=== PATIENT | female | born 1950 | race Caucasian/White ===

== ENCOUNTER → 2016-09-13 | Outpatient (CLI) | payer MEDICARE, OTHER ==
[~2016-09-13] MED LIST: AMLO5TAB2; ASPI-266 PO; LEVOTHYROXINE; NITR-65 PO; PHEN200T27 PO; SIMV10TA3
--- NOTE | 2016-09-14 19:11 | Diagnostic Imaging Report ---
Bilateral screening mammogram The current study was also evaluated with a Computer Aided Detection (CAD) system. Indication: Screening. No current complaints stated on the questionnaire. COMPARISON: 08/16/15. FINDINGS: The breasts are composed of scattered fibroglandular densities. There is a punctate calcification in the right breast. Allowing for technique and positional differences, no suspicious change is seen. IMPRESSION: No significant change. ACR BI-RADS Category 2: Benign findings. Result letter will be mailed to the patient. Note: At least 10% of breast cancer is not imaged by mammography. Dictated on workstation # [id number]
== END ==
LOC: RAD 13:58
PROVIDERS: ATTEND Family Medicine
DX: Z12.31 Encounter for screening mammogram for malignant neoplasm of breast (principal)
CPT/HCPCS: 77067

== ENCOUNTER 2017-05-05 10:04 | Emergency (ER) | payer MEDICARE, OTHER ==
[~2017-05-05] VITALS: Ht 162.6 cm; Wt 76.2 kg
[2017-05-05 11:38] LABS: BILIRUBIN,URINE NEGATIVE (NEGATIVE); CLARITY,URINE CLEAR; COLOR,URINE YELLOW; GLUCOSE, URINE (UA) NEGATIVE (NEGATIVE); KETONES,URINE NEGATIVE (NEGATIVE); LEUKOCYTE ESTERASE ,URINE 1+ (NEGATIVE); NITRITE,URINE NEGATIVE (NEGATIVE); PH,URINE 7 (5-9); PROTEIN,URINE NEGATIVE (NEGATIVE); UROBILINOGEN,URINE NORMAL (NORMAL)
--- NOTE | 2017-05-05 11:40 | ED Psychosocial ---
General Chief Complaint: Psych/Social Disorder Stated Complaint: ANXIETY Nursing Triage Note: PT HERE WITH C/O GENERAL ANXIETY. PT REPROTS THAT SHE HAS BEEN CARING FOR HER ILL BROTHER AND HER GROWN SON RECENTLY MOVED IN WITH HER AND HER AND FEELS LIKE SHE IS BEING "CONSUMED BY HER ANXIETY" AND THINKS THAT SHE NEEDS TO BE HOSPITALIZED. PT HAS A HISTORY OF ANXIETY AND TAKES ALPRAZOLAM BUT REPORTS IT IS NO LONGER WORKING. DENIES THOUGHTS OF SELF HARM. PT IS TEARFUL ON TRIAGE. Source: patient, spouse Exam Limitations: no limitations History of Present Illness Date Seen by Provider: May 05, 2017 Time Seen by Provider: 11:40 Allergies and Home Medications Allergies Coded Allergies: No Known Drug Allergies (Unverified , 11/08/13) Home Medications Aspirin 81 Mg Tablet.dr, 81 MG PO DAILY, (Reported) Nitrofurantoin/Nitrofuran Mac 100 Mg Capsule, 1 EACH PO BID FOR INFECTION Prescribed by: PATRICK GONZALEZ on 11/08/13 1008 Phenazopyridine Hcl 200 Mg Tablet, 1 EACH PO TID PRN for BLADDER DISCOMFORT Prescribed by: PATRICK GONZALEZ on 11/08/13 1008 Past Oadeccr-Aoxffi-Dixoiq Hx Patient Social History Recreational Drug Use: No Recent Foreign Travel: No Contact w/Someone Who Travel: No Recent Infectious Disease Expo: No Recent Hopitalizations: No Physical Abuse: No Sexual Abuse: No Mistreated: No Fear: No Immunizations Up To Date Date of Pneumonia Vaccine: Feb 08, 2013 Seasonal Allergies Seasonal Allergies: No Surgeries History of Surgeries: Yes (D AND C) Surgeries: Hysterectomy, Tubal Ligation Respiratory History of Respiratory Disorde: No Cardiovascular History of Cardiac Disorders: Yes Cardiac Disorders: High Cholesterol, Hypertension Neurological History of Neurological Disord: No Genitourinary History of Genitourinary Disor: Yes (BLADDER STRETCHED) Genitourinary Disorders: UTI-Chronic Gastrointestinal History of Gastrointestinal Di: No Musculoskeletal History of Musculoskeletal Dis: Yes Musculoskeletal Disorders: Arthritis Endocrine History of Endocrine Disorders: Yes Endocrine Disorders: Hypothyroidsim HEENT History of HEENT Disorders: No Cancer History of Cancer: No Psychosocial History of Psychiatric Problem: Yes Behavioral Health Disorders: Anxiety Suicide Risk Score: 0 Integumentary History of Skin or Integumenta: No Physical Exam Vital Signs Vital Signs - First Documented 05/05/17 10:42 Temp 96.3 Pulse 89 Resp 18 B/P (MAP) 199/93 (128) Pulse Ox 96 O2 Delivery Room Air Capillary Refill : Less Than 3 Seconds Progress/Results/Core Measures Results/Orders Lab Results Laboratory Tests Test 05/05/17 11:02 05/05/17 11:50 Range/Units Urine Color YELLOW Urine Clarity CLEAR Urine pH 7 5-9 Urine Specific [place] 1.010 L 1.016-1.022 Urine Protein NEGATIVE NEGATIVE Urine Glucose (UA) NEGATIVE NEGATIVE Urine Ketones NEGATIVE NEGATIVE Urine Nitrite NEGATIVE NEGATIVE Urine Bilirubin NEGATIVE NEGATIVE Urine Urobilinogen NORMAL NORMAL MG/DL Urine Leukocyte Esterase 1+ H NEGATIVE Urine RBC (Auto) 1+ H NEGATIVE Urine RBC NONE /HPF Urine WBC 0-2 /HPF Urine Squamous Epithelial Cells 2-5 /HPF Urine Crystals NONE /LPF Urine Bacteria NEGATIVE /HPF Urine Casts NONE /LPF Urine Mucus NEGATIVE /LPF Urine Culture Indicated NO Urine Opiates Screen NEGATIVE NEGATIVE Urine Oxycodone Screen NEGATIVE NEGATIVE Urine Methadone Screen NEGATIVE NEGATIVE Urine Propoxyphene Screen NEGATIVE NEGATIVE Urine Barbiturates Screen NEGATIVE NEGATIVE Ur Tricyclic Antidepressants Screen NEGATIVE NEGATIVE Urine Phencyclidine Screen NEGATIVE NEGATIVE Urine Amphetamines Screen NEGATIVE NEGATIVE Urine Methamphetamines Screen NEGATIVE NEGATIVE Urine Benzodiazepines Screen NEGATIVE NEGATIVE Urine Cocaine Screen NEGATIVE NEGATIVE Urine Cannabinoids Screen NEGATIVE NEGATIVE White Blood Count 7.8 4.3-11.0 10^3/uL Red Blood Count 5.31 4.35-5.85 10^6/uL Hemoglobin 15.9 11.5-16.0 G/DL Hematocrit 48 35-52 % Mean Corpuscular Volume 90 80-99 FL Mean Corpuscular Hemoglobin 30 25-34 PG Mean Corpuscular Hemoglobin Concent 33 32-36 G/DL Red Cell Distribution Width 13.3 10.0-14.5 % Platelet Count 283 130-400 10^3/uL Mean Platelet Volume 9.5 7.4-10.4 FL Neutrophils (%) (Auto) 63 42-75 % Lymphocytes (%) (Auto) 23 12-44 % Monocytes (%) (Auto) 13 H 0-12 % Eosinophils (%) (Auto) 0 0-10 % Basophils (%) (Auto) 0 0-10 % Neutrophils # (Auto) 4.9 1.8-7.8 X 10^3 Lymphocytes # (Auto) 1.8 1.0-4.0 X 10^3 Monocytes # (Auto) 1.0 0.0-1.0 X 10^3 Eosinophils # (Auto) 0.0 0.0-0.3 10^3/uL Basophils # (Auto) 0.0 0.0-0.1 10^3/uL Sodium Level 141 135-145 MMOL/L Potassium Level 3.7 3.6-5.0 MMOL/L Chloride Level 106 98-107 MMOL/L Carbon Dioxide Level 27 21-32 MMOL/L Anion Gap 8 5-14 MMOL/L Blood Urea Nitrogen 11 7-18 MG/DL Creatinine 0.72 0.60-1.30 MG/DL Estimat Glomerular Filtration Rate > 60 BUN/Creatinine Ratio 15 Glucose Level 102 70-105 MG/DL Calcium Level 9.4 8.5-10.1 MG/DL Total Bilirubin 0.9 0.1-1.0 MG/DL Aspartate Amino Transf (AST/SGOT) 16 5-34 U/L Alanine Aminotransferase (ALT/SGPT) 19 0-55 U/L Alkaline Phosphatase 83 40-136 U/L Total Protein 6.8 6.4-8.2 GM/DL Albumin 4.1 3.2-4.5 GM/DL TSH [place] Testing 0.69 0.35-4.94 UIU/ML Salicylates Level < 5.0 L 5.0-20.0 MG/DL Acetaminophen Level < 10 L 10-30 UG/ML Serum Alcohol < 10 <10 MG/DL My Orders Orders - NAHID LUA Ua Culture If Indicated (05/05/17 11:33) Cbc With Automated Diff (05/05/17 11:33) Comprehensive Metabolic Panel (05/05/17 11:33) Alcohol (05/05/17 11:33) Drug Screen Stat (Urine) (05/05/17 11:33) Acetaminophen (05/05/17 11:33) Salicylate (05/05/17 11:33) Ekg Tracing (05/05/17 11:33) Thyroid Analyzer (05/05/17 11:33) Alprazolam Tablet (Xanax Tablet) (05/05/17 13:30) General/Regular (05/06/17 Breakfast) General/Regular (05/05/17 Dinner) Medications Given in ED Current Medications Medications Dose Ordered Sig/Juan Alberto Route Start Time Stop Time Status Last Admin Dose Admin Alprazolam 0.25 mg ONCE ONCE PO 05/05/17 13:30 05/05/17 13:31 DC 05/05/17 13:32 0.25 MG Vital Signs/I&O Vital Sign - Last 12Hours 05/05/17 05/05/17 10:42 11:53 Temp 96.3 Pulse 89 Resp 18 B/P (MAP) 199/93 (128) 114/71 (85) Pulse Ox 96 O2 Delivery Room Air Blood Pressure Mean: 128 Departure Impression Impression: Primary Impression: Anxiety Additional Impression: Stress Disposition: 01 HOME, SELF-CARE Condition: Improved Departure-Patient Inst. Decision time for Depature: 15:43 Referrals: KRYSTA CASTORENA DO (PCP/Family) Primary Care Physician Patient Instructions: Anxiety, Adult (DC), Depression, Adult (DC), Stress Add. Discharge Instructions: All discharge instructions reviewed with patient and/or family. Voiced understanding. Medications as instructed. Continue usual home medications. Contact the Crisis line if needed at [phone] or . Follow-up with Dr. Dr. Castorena tomorrow at 2 p.m. in his office for recheck. Return to the emergency department for worsened symptoms, thoughts of harming yourself, thoughts of harming others, or any other concerns. Scripts Hydroxyzine Pamoate (Vistaril) 25 Mg Capsule 25 MG PO Q4H Y for ANXIETY, #20 CAP 0 Refills Prov: NAHID LUA 05/05/17 NAHID LUA May 05, 2017 11:40
[2017-05-05 11:48] LABS: BACTERIA,URINE NEGATIVE /HPF; WBC,URINE 0-2 /HPF
[2017-05-05 11:50] LABS: AMPHETAMINE SCREEN, URINE NEGATIVE (NEGATIVE); BARBITURATE SCREEN URINE NEGATIVE (NEGATIVE); BENZODIAZEPINES SCREEN URINE NEGATIVE (NEGATIVE); CANNABINOID SCREEN, URINE NEGATIVE (NEGATIVE); COCAINE SCREEN URINE NEGATIVE (NEGATIVE); METHADONE STAT NEGATIVE (NEGATIVE); METHAMPHETAMINE SCREEN URINE S NEGATIVE (NEGATIVE); OPIATE SCREEN URINE NEGATIVE (NEGATIVE); OXYCODONE STAT NEGATIVE (NEGATIVE); PROPOXYPHENE STAT NEGATIVE (NEGATIVE); TRICYCLIC ANTIDEPRESSANTS SCRE NEGATIVE (NEGATIVE)
[2017-05-05 11:53] VITALS: BP 114/71
[2017-05-05 11:55] LABS: BASOPHILS % (AUTO) 0 % (0-10); EOSINOPHILS % (AUTO) 0 % (0-10); HEMATOCRIT 48 % (35-52); HEMOGLOBIN 15.9 G/DL (11.5-16.0); LYMPHOCYTES # (AUTO) 1.8 X 10^3 (1.0-4.0); LYMPHOCYTES % (AUTO) 23 % (12-44); MEAN CORPUSCULAR HEMOGLOBIN 30 PG (25-34); MEAN CORPUSCULAR HGB CONC 33 G/DL (32-36); MEAN CORPUSCULAR VOLUME 90 FL (80-99); MEAN PLATELET VOLUME 9.5 FL (7.4-10.4); MONOCYTES % (AUTO) 13 % (0-12); NEUTROPHILS # (AUTO) 4.9 X 10^3 (1.8-7.8); NEUTROPHILS % (AUTO) 63 % (42-75); PLATELET COUNT 283 10^3/uL (130-400); RED BLOOD COUNT 5.31 10^6/uL (4.35-5.85); RED CELL DISTRIBUTION WIDTH 13.3 % (10.0-14.5); WHITE BLOOD COUNT 7.8 10^3/uL (4.3-11.0)
[2017-05-05 12:17] LABS: ALANINE AMINOTRANSFERASE 19 U/L (0-55); ALBUMIN 4.1 GM/DL (3.2-4.5); ALKALINE PHOSPHATASE 83 U/L (40-136); BILIRUBIN,TOTAL 0.9 MG/DL (0.1-1.0); BUN/CREATININE RATIO 15; CALCIUM 9.4 MG/DL (8.5-10.1); CARBON DIOXIDE 27 MMOL/L (21-32); CHLORIDE 106 MMOL/L (98-107); CREATININE SERUM 0.72 MG/DL (0.60-1.30); GFR ESTIMATED > 60; GLUCOSE 102 MG/DL (70-105); POTASSIUM 3.7 MMOL/L (3.6-5.0); SALICYLATE < 5.0 MG/DL (5.0-20.0); SODIUM 141 MMOL/L (135-145); TOTAL PROTEIN 6.8 GM/DL (6.4-8.2)
[2017-05-05 12:18] LABS: ACETAMINOPHEN < 10 UG/ML (10-30)
[2017-05-05] MEDS ORDERED: ALPRAZolam 0.25 MG (XANAX) TAB PO ONE (13:30)
[2017-05-05] MEDS ORDERED: HYDR25CA PO (17:10)
[2017-05-05 17:16] VITALS: BP 131/71
== END 2017-05-05 17:15 | disposition home or self-care (01) ==
LOC: EDUNIT# 10:04 → ER 10:06
DX: F41.9 Anxiety disorder, unspecified (principal); F43.9 Reaction to severe stress, unspecified; E03.9 Hypothyroidism, unspecified; E78.00 Pure hypercholesterolemia, unspecified; I10 Essential (primary) hypertension; Z98.51 Tubal ligation status; Z90.710 Acquired absence of both cervix and uterus; Z79.82 Long term (current) use of aspirin
CPT/HCPCS: 36415; 80053; 80306; 80320; 80329; 81000; 84443; 85025; 93005

== ENCOUNTER → 2017-08-16 | Outpatient (CLI) | payer MEDICARE, OTHER ==
[~2017-08-16] MED LIST changes: +HYDR25CA PO
--- NOTE | 2017-08-22 15:50 | RADIOLOGY REPORT ---
NAME: STEVIE FENTON [facility] REC#: [id number] PT STATUS: REG CLI : 1950 PHYSICIAN: BENJAMIN HELMS ADMIT DATE: 08/16/17/RAD Signed Date of Exam:08/16/17 CT HEAD WO PROCEDURE: CT head without contrast. TECHNIQUE: Multiple contiguous axial images were obtained through the brain without the use of intravenous contrast. INDICATION: Anxiety, depression. There are no prior studies available for comparison. There is no mass, shift of midline or hemorrhage to suggest an acute intracranial abnormality. The normal tentorial blush is noted. The ventricles are not abnormally dilated. There is cortical atrophy present. The degree of atrophy is consistent with the patient's age. The bone windows show no sign of a fracture or of a destructive lesion. The orbits are symmetrical and within normal limits. There is a 1 cm retention cyst in the floor of the left maxillary antrum and there may be a 5 mm retention cyst in the right maxillary antrum. The maxillary sinuses were not visualized in there entirety. There is mild mucosal thickening of the right sphenoid sinus. The sinuses are otherwise clear. IMPRESSION: 1. There is no for an acute intracranial abnormality and there is no sign of a mass lesion. 2. If clinical concern regarding an underlying abnormality persists and further imaging is desired, then MRI would be recommended. Dictated by: Dictated on workstation # [id number] Dict: 08/16/17 0923 Trans: 08/16/17 1418 [facility] [id number] Interpreted by: SHAMAR ARCHIBALD MD Electronically signed by: SHAMAR ARCHIBALD MD 08/16/17 1418 MTDD
== END ==
LOC: RAD 09:03
PROVIDERS: ATTEND Nurse Practitioner Psychiatric/Mental Health
DX: F41.8 Other specified anxiety disorders (principal); R41.89 Other symptoms and signs involving cognitive functions and awareness
CPT/HCPCS: 70450

== ENCOUNTER 2017-09-02 10:11 | Outpatient (RCR) | payer MEDICARE, OTHER | END 2017-12-01 | disposition home or self-care (01) | LOC: LAB 10:11 | PROVIDERS: ATTEND Family Medicine | DX: R19.7 Diarrhea, unspecified (principal) | CPT/HCPCS: 87045; 87046; 87324; 87328; 87449 ==

== ENCOUNTER 2020-10-07 05:36 | Outpatient (CLI) | payer MEDICARE, OTHER ==
[~2020-10-07] VITALS: Ht 162.6 cm; Wt 70.5 kg
[2020-10-07] MEDS ORDERED: MIRT-68 PO (11:29)
[2020-10-07] MEDS ORDERED: AMLO-250 PO (11:29)
[2020-10-07] MEDS ORDERED: ASPI-999 PO (11:29)
[2020-10-07] MEDS ORDERED: SIMV10TA26 PO (11:29)
[2020-10-07] MEDS ORDERED: OMEG100032 PO (11:29)
[2020-10-07] MEDS ORDERED: LEVO88CA4 PO (11:29)
== END 2020-10-07 11:37 | disposition home or self-care (01) ==
LOC: PREOP 05:36
PROVIDERS: ATTEND Specialist
DX: Z01.818 Encounter for other preprocedural examination (principal)

== ENCOUNTER 2020-10-14 06:27 | Day surgery (SDC) | payer MEDICARE, OTHER ==
[~2020-10-14] VITALS: Ht 162.6 cm; Wt 70.5 kg
[~2020-10-14 06:27] MED LIST changes: +AMLO-250 PO; +ASPI-999 PO; +LEVO88CA4 PO; +MIRT-68 PO; +OMEG100032 PO; +SIMV10TA26 PO
[2020-10-14] MEDS ORDERED: TIMOLOL MALEATE 0.5% 5 ML (TIMOPTIC) BTL OU PRN (06:45)
[2020-10-14] MEDS ORDERED: LIDOCAINE PF 1% 2 ML VIAL IR PRN (06:45)
[2020-10-14] MEDS ORDERED: POVIDONE (BETADINE) OPHTH SOLN 5% 30 ML OP ONE (06:45)
[2020-10-14] MEDS ORDERED: MOXIFLOXACIN OPHTH SOLN 5 MG/ML 0.3 ML SYRINGE OP ONE (06:45)
[2020-10-14] MEDS: TETRACAINE 0.5% OPHTH SOLN 4 ML BTL (SINGLE DOSE ONLY) OU PRN ×4 (06:55→07:13)
[2020-10-14 06:58] VITALS: BP 144/96
[2020-10-14] MEDS: TROPICAMIDE 1% OPH SOLN (MYDRIACYL) 15 ML BTL OP SCH ×3 (07:03→07:13)
[2020-10-14] MEDS: PHENYLEPHRINE 10% OPHTH (NEO-SYN) 5 ML BTL OU SCH ×3 (07:03→07:13)
--- NOTE | 2020-10-14 07:51 | Ophthalmologist Pre-Op Note ---
Pre-Operative Progress Note H&P Reviewed The H&P was reviewed, patient examined and no changes noted. Date H&P Reviewed: Oct 14, 2020 Time H&P Reviewed: 07:51 Pre-Op Dx Cataract, Right Eye OLGA MINOR MD Oct 14, 2020 07:51
[2020-10-14] MEDS ORDERED: MIDAZOLAM 2 MG/2 ML (VERSED) VIAL ONE (07:54)
[2020-10-14] MEDS ORDERED: acetaZOLAMIDE ER 500 MG CAP (DIAMOX SEQUELS) PO ONE (08:00)
--- NOTE | 2020-10-14 08:13 | Ophthalmology Operative Report ---
Cataract removal/placement IOL PREOPERATIVE DIAGNOSIS: Cataract Right Eye POSTOPERATIVE DIAGNOSIS: Cataract Right Eye PROCEDURE: Cataract removal and placement of posterior chamber implant, right eye SURGEON: Jian Minor ANESTHESIA: Topical with sedation COMPLICATIONS: None ESTIMATED BLOOD LOSS: Minimal DESCRIPTION OF PROCEDURE: After proper informed consent was obtained, the patient, a 70 female, was taken to the Operating Room and the right eye was anesthetized with tetracaine. The right eye was then prepped and draped in the usual manner. A wire lid speculum was placed. A paracentesis was made at the left hand position. Preservative free lidocaine was injected into the anterior chamber followed by viscoelastic. A clear corneal incision was made in the temporal position. A capsulorrhexis was preformed and the central nuclear and cortical material were removed. The posterior capsule was polished and Jesus 21.0 AU00T0 IOL was placed into the capsular bag. The residual viscoelastic was aspirated and balanced saline solution was injected into the anterior chamber. Moxifloxacin was injected into the anterior chamber. The wound was checked and found to be water tight. The patient tolerated the procedure well without complications. JIAN MINOR MD Oct 14, 2020 08:13
[2020-10-14 08:25] VITALS: BP 123/83
--- NOTE | 2020-10-14 12:45 | Anesthesia-General Post-Op ---
MAC Patient Condition Mental Status/LOC: Same as Preop Cardiovascular: Satisfactory Nausea/Vomiting: Absent Respiratory: Satisfactory Pain: Controlled Complications: Absent Post Op Complications Complications None Follow Up Care/Instructions Patient Instructions None needed. Anesthesiology Discharge Order Discharge Order Patient is doing well, no complaints, stable vital signs, no apparent adverse anesthesia problems. No complications reported per nursing. RAFAELA RUSSO CRNA Oct 14, 2020 12:45
== END 2020-10-14 08:25 | disposition home or self-care (01) ==
LOC: SDC 06:27
PROVIDERS: ATTEND Specialist
DX: H25.11 Age-related nuclear cataract, right eye (principal); F41.9 Anxiety disorder, unspecified; F32.9 Major depressive disorder, single episode, unspecified; E03.9 Hypothyroidism, unspecified; E78.00 Pure hypercholesterolemia, unspecified; Z79.899 Other long term (current) drug therapy
CPT/HCPCS: 66984; V2632

== ENCOUNTER 2020-10-21 05:43 | Outpatient (CLI) | payer MEDICARE, OTHER ==
[~2020-10-21] VITALS: Ht 162.6 cm; Wt 70.5 kg
== END 2020-10-21 11:25 | disposition home or self-care (01) ==
LOC: PREOP 05:43
PROVIDERS: ATTEND Specialist
DX: Z01.818 Encounter for other preprocedural examination (principal)

== ENCOUNTER 2020-10-28 06:56 | Day surgery (SDC) | payer MEDICARE, OTHER ==
[~2020-10-28] VITALS: Ht 162 cm; Wt 70.5 kg
[2020-10-28] MEDS ORDERED: MOXIFLOXACIN OPHTH SOLN 5 MG/ML 0.3 ML SYRINGE OP ONE (07:00)
[2020-10-28] MEDS ORDERED: acetaZOLAMIDE ER 500 MG CAP (DIAMOX SEQUELS) PO ONE (07:00)
[2020-10-28] MEDS ORDERED: POVIDONE (BETADINE) OPHTH SOLN 5% 30 ML OP ONE (07:00)
[2020-10-28] MEDS ORDERED: LIDOCAINE PF 1% 2 ML VIAL IR PRN (07:00)
[2020-10-28] MEDS ORDERED: TIMOLOL MALEATE 0.5% 5 ML (TIMOPTIC) BTL OU PRN (07:00)
[2020-10-28] MEDS ORDERED: MIDAZOLAM 2 MG/2 ML (VERSED) VIAL ONE (07:05)
[2020-10-28] MEDS: TETRACAINE 0.5% OPHTH SOLN 4 ML BTL (SINGLE DOSE ONLY) OU PRN ×4 (07:11→07:29)
[2020-10-28 07:13] VITALS: BP 135/87
[2020-10-28] MEDS: PHENYLEPHRINE 10% OPHTH (NEO-SYN) 5 ML BTL OU SCH ×3 (07:18→07:29)
[2020-10-28] MEDS: TROPICAMIDE 1% OPH SOLN (MYDRIACYL) 15 ML BTL OP SCH ×3 (07:18→07:29)
--- NOTE | 2020-10-28 08:10 | Ophthalmologist Pre-Op Note ---
Pre-Operative Progress Note H&P Reviewed The H&P was reviewed, patient examined and no changes noted. Date H&P Reviewed: Oct 28, 2020 Time H&P Reviewed: 08:10 Pre-Op Dx Cataract, Left Eye OLGA MINOR MD Oct 28, 2020 08:10
--- NOTE | 2020-10-28 08:31 | Ophthalmology Operative Report ---
Cataract removal/placement IOL PREOPERATIVE DIAGNOSIS: Cataract Left Eye POSTOPERATIVE DIAGNOSIS: Cataract Left Eye PROCEDURE: Cataract removal and placement of posterior chamber implant, left eye SURGEON: Jian Minor ANESTHESIA: Topical with sedation COMPLICATIONS: None ESTIMATED BLOOD LOSS: Minimal DESCRIPTION OF PROCEDURE: After proper informed consent was obtained, the patient, a 70 female, was taken to the Operating Room and the left eye was anesthetized with tetracaine. The left eye was then prepped and draped in the usual manner. A wire lid speculum was placed. A paracentesis was made at the left hand position. Preservative free lidocaine was injected into the anterior chamber followed by viscoelastic. A clear corneal incision was made in the temporal position. A capsulorrhexis was preformed and the central nuclear and cortical material were removed. The posterior capsule was polished and an Jesus 20.0 AU00T0 was placed into the capsular bag. The residual viscoelastic was aspirated and balanced saline solution was injected into the anterior chamber. Moxifloxacin was injected into the anterior chamber. The wound was checked and found to be water tight. The patient tolerated the procedure well without complications. JIAN MINOR MD Oct 28, 2020 08:31
[2020-10-28 08:44] VITALS: BP 135/85
--- NOTE | 2020-10-28 10:53 | Anesthesia-General Post-Op ---
MAC Patient Condition Mental Status/LOC: Same as Preop Cardiovascular: Satisfactory Nausea/Vomiting: Absent Respiratory: Satisfactory Pain: Controlled Complications: Absent Post Op Complications Complications None Follow Up Care/Instructions Patient Instructions None needed. Anesthesiology Discharge Order Discharge Order Patient is doing well, no complaints, stable vital signs, no apparent adverse anesthesia problems. No complications reported per nursing. OTIS FERGUSON CRNA Oct 28, 2020 10:53
== END 2020-10-28 08:50 ==
LOC: SDC 06:56
PROVIDERS: ATTEND Specialist
DX: H25.12 Age-related nuclear cataract, left eye (principal); I10 Essential (primary) hypertension; F41.9 Anxiety disorder, unspecified; F32.9 Major depressive disorder, single episode, unspecified; E03.9 Hypothyroidism, unspecified; E78.00 Pure hypercholesterolemia, unspecified; Z79.899 Other long term (current) drug therapy
CPT/HCPCS: 66984; V2632

== ENCOUNTER → 2021-07-18 | Outpatient (CLI) | payer MEDICARE, OTHER ==
--- NOTE | 2021-07-18 20:21 | Diagnostic Imaging Report ---
Digital mammogram bilateral screening This study was compared to the prior exam of 09/13/2016. At this time, there are no current complaints. The current study was also evaluated with a Computer Aided Detection (CAD) system. FINDINGS: There are scattered fibroglandular densities in both breasts which could obscure a lesion. Overall, there does not appear to have been any significant change when compared to the prior exam. No primary or secondary sign of malignancy is noted. IMPRESSION: 1. There is no radiographic evidence for malignancy. 2. The patient should have her annual bilateral screening mammogram on schedule in July of 2022. ACR category 1 ACR BI-RADS Category 1: Negative. Result letter will be mailed to the patient. Note: At least 10% of breast cancer is not imaged by mammography. Dictated by: Dictated on workstation # [id number]
== END ==
LOC: RAD 11:31
PROVIDERS: ATTEND Family Medicine
DX: Z12.31 Encounter for screening mammogram for malignant neoplasm of breast (principal)
CPT/HCPCS: 77063; 77067

== ENCOUNTER → 2021-12-27 | Outpatient (CLI) | payer MEDICARE, OTHER ==
--- NOTE | 2021-12-27 14:28 | Diagnostic Imaging Report ---
PROCEDURE: CT head without contrast. TECHNIQUE: Multiple contiguous axial images were obtained through the brain without the use of intravenous contrast. Auto Exposure Controls were utilized during the CT exam to meet ALARA standards for radiation dose reduction. INDICATION: Injured in fall presents with headache Comparisons: 08/16/2017 FINDINGS: The midline structures are not displaced. There are senescent changes the brain with involutional changes and generalized atrophy. There is some background chronic areas of microvascular ischemic change. Carrasco-white differentiation maintained. There is no sulcal effacement. There are no abnormal extra axial fluid collections or hemorrhage. Basilar cisterns appear normal. There is calcific atherosclerosis within the carotid siphons and visualized vertebral arteries. There is a mucous retention cyst at the floor of the left maxillary sinus. Orbits and mastoid air cells are grossly unremarkable. IMPRESSION: Senescent brain with and involutional changes and generalized atrophy with background chronic areas of microvascular ischemic change. There is prominent calcification of the carotid siphons and visualized vertebral arteries. Overall no acute findings identified by nonenhanced CT criteria. Chronic appearing mucosal changes versus mucous retention cyst in the floor of the left maxillary sinus. Additional nonemergent findings as described. Dictated by: Dictated on workstation # [id number]
== END ==
LOC: RAD 14:00
PROVIDERS: ATTEND Family Medicine
DX: G31.9 Degenerative disease of nervous system, unspecified (principal); I67.82 Cerebral ischemia
CPT/HCPCS: 70450

== ENCOUNTER → 2022-01-17 | Outpatient (CLI) | payer MEDICARE, OTHER ==
--- NOTE | 2022-01-17 14:22 | Diagnostic Imaging Report ---
PROCEDURE: US carotid duplex, bilateral. TECHNIQUE: Multiple real-time grayscale images were obtained over the carotid arteries in various projections, bilaterally. Additional spectral analysis and color Doppler duplex images were also obtained. INDICATION: Dizziness. COMPARISON: None available. FINDINGS: Minimal plaque is noted within bilateral carotid arterial systems. Peak systolic velocities of the bilateral carotid arterial systems are within normal limits. Additionally, the bilateral internal carotid artery to common carotid artery ratios are within normal limits. Antegrade flow within the bilateral vertebral arteries. IMPRESSION: No evidence of hemodynamically significant stenosis. Antegrade flow within the bilateral vertebral arteries. Parameters based on the consensus panel Carrasco-Scale and Doppler ultrasound criteria published January 2003, Radiology, Volume 229. DOPPLER (peak systolic velocity M/S Right Left CCA 1.15 1.22 ICA Proximal .65 .79 ICA Mid .71 .95 ICA Distal 1.10 .61 RATIO .96 .78 ECA 1.1 .85 VERT .69 .30 Dictated by: Dictated on workstation # [id number]
== END ==
LOC: RAD 09:00
PROVIDERS: ATTEND Family Medicine
DX: R42 Dizziness and giddiness (principal); R51.9 Headache, unspecified
CPT/HCPCS: 93880

== ENCOUNTER → 2022-02-07 | Outpatient (CLI) | payer MEDICARE, OTHER ==
[2022-02-07 10:21] LABS: ABSOLUTE RETIC # 55 10e9/uL (24-90); BASOPHILS % (AUTO) 1 % (0-10); EOSINOPHILS # (AUTO) 0.1 10^3/uL (0.0-0.3); EOSINOPHILS % (AUTO) 2 % (0-10); HEMATOCRIT 29 % (35-52); HEMOGLOBIN 8.6 g/dL (11.5-16.0); LYMPHOCYTES # (AUTO) 1.4 10^3/uL (1.0-4.0); LYMPHOCYTES % (AUTO) 30 % (12-44); MEAN CORPUSCULAR HEMOGLOBIN 22 pg (25-34); MEAN CORPUSCULAR HGB CONC 30 g/dL (32-36); MEAN CORPUSCULAR VOLUME 73 fL (80-99); MEAN PLATELET VOLUME 8.8 fL (9.0-12.2); MONOCYTES # (AUTO) 0.6 10^3/uL (0.0-1.0); MONOCYTES % (AUTO) 13 % (0-12); NEUTROPHILS # (AUTO) 2.6 10^3/uL (1.8-7.8); NEUTROPHILS % (AUTO) 55 % (42-75); PLATELET COUNT 429 10^3/uL (130-400); RETICULOCYTE % 1.39 % (0.50-2.40); WHITE BLOOD COUNT 4.7 10^3/uL (4.3-11.0)
[2022-02-07 10:50] LABS: EOSINOPHILS % (MANUAL) 1 %; LYMPHOCYTES % (MANUAL) 30 %; MONOCYTES % (MANUAL) 6 %; NEUTROPHILS % (MANUAL) 63 %
[2022-02-07 10:51] LABS: HYPOCHROMASIA MODERATE; MICROCYTOSIS MODERATE; TARGET CELLS SLIGHT
== END ==
LOC: LAB 09:50
PROVIDERS: ATTEND Family Medicine
DX: D64.9 Anemia, unspecified (principal)
CPT/HCPCS: 36415; 82274; 82728; 85007; 85027; 85045; 85055

== ENCOUNTER 2022-03-06 09:26 | Outpatient (CLI) | payer MEDICARE, OTHER ==
[~2022-03-06] VITALS: Ht 162.6 cm; Wt 69.8 kg
[2022-03-07] MEDS ORDERED: LOSA50TA63 PO (11:10)
[2022-03-07] MEDS ORDERED: PANT40TA52 PO (11:10)
[2022-03-07] MEDS ORDERED: LEVO75CA5 PO (11:10)
== END 2022-03-07 11:13 ==
LOC: PREOP 09:26
PROVIDERS: ATTEND Surgery
DX: Z01.818 Encounter for other preprocedural examination (principal); D50.9 Iron deficiency anemia, unspecified

== ENCOUNTER 2022-03-13 09:51 | Day surgery (SDC) | payer MEDICARE, OTHER ==
[~2022-03-13] VITALS: Ht 162.6 cm; Wt 69.8 kg
[~2022-03-13 09:51] MED LIST changes: +LEVO75CA5 PO; +LOSA50TA63 PO; +PANT40TA52 PO
[2022-03-13] MEDS ORDERED: LACTATED RINGERS 1,000 ML IV STA (09:53)
[2022-03-13] MEDS ORDERED: HURRICAINE EXT TUBE (BENZOCAINE) XX PRN (10:00)
[2022-03-13] MEDS ORDERED: HURRICAINE EXT TUBE (BENZOCAINE) ONE (10:05)
[2022-03-13] MEDS ORDERED: LACTATED RINGERS 1,000 ML IV ONE (10:05)
--- NOTE | 2022-03-13 10:12 | Progress Note-Pre Operative ---
Pre-Operative Progress Note Date of Available H&P: Feb 23, 2022 Date H&P Reviewed: Mar 13, 2022 Time H&P Reviewed: 10:12 History & Physical: H&P Reviewed, Patient Examed, No changes noted Pre-Operative Diagnosis: iron def anemia, occult + stool ANABELLA PISANO DO Mar 13, 2022 10:12
[2022-03-13 10:15] VITALS: BP 146/84
[2022-03-13] MEDS ORDERED: PROPOFOL INJECTION 50 ML IV ONE (10:42)
[2022-03-13 11:20] VITALS: BP 109/54
--- NOTE | 2022-03-13 11:23 | Discharge Inst-Simple/Standard ---
Discharge Inst-Standard Patient Instructions/Follow Up Plan of Care/Instructions/FU: 2 weeks Bernardo Activity as Tolerated: Yes Discharge Diet: Regular Diet ANABELLA PISANO DO Mar 13, 2022 11:22
[2022-03-13 11:25] VITALS: BP 105/56
[2022-03-13 11:55] VITALS: BP 128/72
--- NOTE | 2022-03-13 11:59 | Anesthesia-General Post-Op ---
MAC Patient Condition Mental Status/LOC: Same as Preop Cardiovascular: Satisfactory Nausea/Vomiting: Absent Respiratory: Satisfactory Pain: Controlled Complications: Absent Post Op Complications Complications None Follow Up Care/Instructions Patient Instructions None needed. Anesthesiology Discharge Order Discharge Order Patient is doing well, no complaints, stable vital signs, no apparent adverse anesthesia problems. No complications reported per nursing. OTIS FERGUSON CRNA Mar 13, 2022 11:59
[2022-03-13 12:20] VITALS: BP 128/72
--- NOTE | 2022-03-13 19:03 | OPERATIVE REPORT ---
DATE OF SERVICE: 03/13/2022 PREOPERATIVE DIAGNOSES: Iron deficiency anemia, occult positive stool. POSTOPERATIVE DIAGNOSES: Benign-appearing gastric polyps, transverse colon mass, rectal polyp. PROCEDURE: EGD with biopsies, colonoscopy with cold biopsies of the transverse colon mass with Yin inking and hot biopsy polypectomy x1 of rectal polyp. SURGEON: Benji Chang DO. ANESTHESIA. Per HERB COUNSELOR. ESTIMATED BLOOD LOSS: None. COMPLICATIONS: None. INDICATIONS: The patient is a 71-year-old female who has iron deficiency anemia and occult positive stool. She understands risks and benefits of the procedure and wishes to proceed. Consent was signed and in chart. DESCRIPTION OF PROCEDURE: The patient was taken to endoscopy suite, placed in the left lateral recumbent position and timeout was performed. Scope was inserted in the mouth, down the esophagus, stomach and into the duodenum without difficulty. No polyps, masses or ulcerations within the duodenum. Scope was slowly retracted back into the stomach, which readily insufflated. No polyps, masses or ulcerations. Biopsy of the antrum was obtained. Scope was retroflexed noting some benign-appearing small gastric polyps. No other pathology. Scope was returned to its normal position and slowly withdrawn from the distal esophagus. Biopsy of the GE junction was obtained. Scope was slowly retracted back until completely removed noting no pathology. Digital rectal exam was performed. No other polyps, masses or ulcerations. Scope was inserted in the rectum and all the way to the cecum with minimal difficulty. Prep was adequate. No polyps, masses, ulcerations in the cecum or ascending colon. In the transverse colon, more hepatic flexure side, transverse colon mass present. Cold biopsies were obtained of this and Yin inking was tattooed distal to the mass, 1 mL in two locations. Scope was then continued slowly retracted back. No polyps, masses or ulcerations noted within the remainder of the transverse, descending and sigmoid colon. In the rectum, a small polyp was present, for which hot biopsy polypectomy was performed. Scope was retroflexed noting no other pathology. Scope was returned to its normal position, slowly withdrawn until completely removed. The patient tolerated the procedure well without complications, taken to recovery in stable condition. RECOMMENDATIONS: The patient will continue on current medications. We will await biopsy results. Either way, if this is an early cancer and advanced polyp, we will need likely an extended right colon resection, laparoscopic-assisted. The patient will be informed of this and Pathology and will have followup in 2 weeks. Job ID: [id number] DocumentID: [id number] Dictated Date: 03/13/2022 11:26:35 Ssrs Developer Date: 03/13/2022 19:01:00 Dictated By: DO CYNTHIA PABLO
== END 2022-03-13 12:20 | disposition home or self-care (01) ==
LOC: ENDO 09:51
PROVIDERS: ATTEND Surgery
DX: K63.5 Polyp of colon (principal); K31.7 Polyp of stomach and duodenum; K62.1 Rectal polyp; D50.9 Iron deficiency anemia, unspecified

== ENCOUNTER → 2022-03-27 | Outpatient (CLI) | payer MEDICARE, OTHER ==
[~2022-03-27] VITALS: Ht 165 cm; Wt 69.8 kg
== END ==
LOC: PREOP 08:02
PROVIDERS: ATTEND Surgery
DX: Z01.818 Encounter for other preprocedural examination (principal); C18.9 Malignant neoplasm of colon, unspecified

== ENCOUNTER 2022-03-29 09:27 | Inpatient (IN) | payer MEDICARE, OTHER ==
[~2022-03-29] VITALS: Ht 165 cm; Wt 70.8 kg
[2022-03-29] VITALS (12 sets, daily range): BP systolic 66–125; BP diastolic 56–77
[2022-03-29] MEDS ORDERED: ceFAZolin INJECTION 2,000 MG ONE (10:04)
[2022-03-29] MEDS ORDERED: ONDANSETRON 4 MG/2 ML (SDV) Z0FRAN ONE ×2 (10:04→10:09)
[2022-03-29] MEDS ORDERED: FAMOTIDINE 20MG/2ML IV (PEPCID) ONE (10:04)
[2022-03-29] MEDS ORDERED: SCOPOLAMINE 1.5 MG (TRANSDERM-SCOP) PATCH ONE (10:04)
[2022-03-29] MEDS ORDERED: metroNIDAZOLE 500MG/100ML IVPB 100 ML ONE (10:04)
[2022-03-29] MEDS ORDERED: NS (IVPB) 50 ML ONE (10:04)
[2022-03-29] MEDS: LACTATED RINGERS 1,000 ML IV PRN ×2 (10:07→12:25)
--- NOTE | 2022-03-29 10:08 | Progress Note-Pre Operative ---
Pre-Operative Progress Note Date of Available H&P: Mar 21, 2022 Date H&P Reviewed: Mar 29, 2022 Time H&P Reviewed: 10:07 History & Physical: H&P Reviewed, Patient Examed, No changes noted Pre-Operative Diagnosis: adenocarcinoma of colon ANABELLA PISANO DO Mar 29, 2022 10:07
[2022-03-29] MEDS ORDERED: proPOfol 200 MG/20 ML (DIPRIVAN) VIAL IV ONE (10:09)
[2022-03-29] MEDS ORDERED: fentaNYL INJ 100 MCG/2 ML AMP ONE (10:09)
[2022-03-29] MEDS ORDERED: ROCURONIUM 50 MG/5 ML (ZEMURON) VIAL IV ONE (10:09)
[2022-03-29] MEDS ORDERED: LIDOCAINE PF 2% 5 ML (XYLOCAINE) VIAL ONE (10:09)
[2022-03-29] MEDS ORDERED: metroNIDAZOLE 500MG/100ML IVPB 100 ML IV ONE (10:15)
[2022-03-29] MEDS ORDERED: FAMOTIDINE 20MG/2ML IV (PEPCID) IVP ONE (10:15)
[2022-03-29] MEDS ORDERED: SCOPOLAMINE 1.5 MG (TRANSDERM-SCOP) PATCH TD ONE (10:15)
[2022-03-29] MEDS ORDERED: ONDANSETRON 4 MG/2 ML (SDV) Z0FRAN IVP ONE (10:15)
[2022-03-29] MEDS ORDERED: ceFAZolin INJECTION 2,000 MG in NS (IVPB) 50 ML IV ONE (10:15)
[2022-03-29] MEDS ORDERED: LIDOCAINE/EPI 1%-1:100,000 (XYLOCAINE) 30ML ONE (10:19)
[2022-03-29] MEDS ORDERED: LIDOCAINE PF 0.5% 50 ML (XYLOCAINE) VIAL ONE (13:08)
[2022-03-29] MEDS ORDERED: ROPIVACAINE 5MG/ML 30ML VIAL ONE (13:09)
--- NOTE | 2022-03-29 13:27 | Progress Note-Post Operative ---
Post-Operative Progess Note Surgeon (s)/Attendant Honor Bar (s) Surgeon ANABELLA PISANO DO Attendant Honor Bar: Dr. Adam Pre-Operative Diagnosis adenocarcinoma of colon Post-Operative Diagnosis same Procedure & Operative Findings Date of Procedure 03/29/22 Procedure Performed/Findings lap hand assisted extended right colon resection Anesthesia Type general Estimated Blood Loss Estimated blood loss (mL): minimal Specimens/Packing Specimens Removed right colon ANABELLA PISANO DO Mar 29, 2022 13:27
[2022-03-29] MEDS ORDERED: GLYCOPYRROLATE 0.2 MG/ML (ROBINUL) 2 ML VIAL ONE (13:28)
[2022-03-29] MEDS ORDERED: NEOSTIGMINE (BLOXIVERZ ) 1 MG/1ML 10 ML VIAL ONE (13:28)
[2022-03-29] MEDS ORDERED: SEVOFLURANE (ULTANE) 15 ML INHAL SOLN ONE (13:30)
[2022-03-29] MEDS ORDERED: HYDROmorphone 2 MG/ML VIAL (DILAUDID) IV ONE (13:45)
[2022-03-29] MEDS ORDERED: PROMETHAZINE INJ 25 MG/ML (PHENERGAN) AMP IVP ONE (13:45)
[2022-03-29] MEDS ORDERED: ONDANSETRON 4 MG/2 ML (SDV) Z0FRAN IVP PRN (13:45)
[2022-03-29] MEDS ORDERED: morphine INJ 10 MG/ML 1ML (SYR OR VIAL) IVP ONE (13:45)
[2022-03-29] MEDS ORDERED: HYDROmorphone 2 MG/ML VIAL (DILAUDID) ONE (14:04)
[2022-03-29] MEDS: HYDROcodone/APAP 5 MG/325 MG (LORTAB) TAB PO PRN ×2 (15:36→23:34)
[2022-03-29] MEDS: ONDANSETRON 4 MG/2 ML (SDV) Z0FRAN IVP PRN (16:49)
[2022-03-29] MEDS: morphine INJ 4 MG/ML 1 ML (VIAL/SYRINGE) IVP PRN (16:51)
[2022-03-29] MEDS: LACTATED RINGERS 1,000 ML IV SCH (16:57)
[2022-03-29] MEDS: ceFAZolin INJECTION 2,000 MG in NS (IVPB) 50 ML IV SCH (17:01)
[2022-03-29] MEDS: metroNIDAZOLE 500MG/100ML IVPB 100 ML IV SCH (17:01)
--- NOTE | 2022-03-29 18:42 | Consultation - Hospitalist ---
HPI History of Present Illness: HPI/Chief Complaint Amanda Del Rio is a 71 year old female with PMH HTN, HLD, hypothyroidism, who presented for right hemicolectomy due to colon adenocarcinoma. The hospitalist service has been consulted for medical comanagement. She was seen post- operatively. She is having some abdominal pain. She also reports nausea. She had some water with hydrocodone earlier. She has no other complaints. Source: patient Exam Limitations: no limitations Date Seen 03/29/22 Attending Physician Oscar Barbour DO PCP Admitting Physician: Benji Chang DO Attending Physician: Benji Chang DO Referring Physician Date of Admission Mar 29, 2022 at 09:27 Home Medications & Allergies Home Medications Reviewed patient Home Medication Reconciliation performed by pharmacy medication reconciliations factory focus technician and/or nursing. Patients Allergies have been reviewed. Allergies Allergies Coded Allergies Iodinated Contrast Media (Unverified Allergy, Unknown, 03/27/22) Past Ideskum-Dajbwj-Acpmkb Hx Patient Social History Tobacco Use?: No Use of E-Cig and/or Vaping dev: No Substance use?: No Alcohol Use?: Yes Alcohol type: Wine Alcohol Frequency: Rarely Pt feels they are or have been: No Immunizations Up To Date Date of Influenza Vaccine: Dec 25, 2021 First/Initial COVID19 Vaccinat: 2020 Second COVID19 Vaccination Kyle: 2020 Tetanus Booster (TDap): Less Than 5 Years Hepatitis A: No Hepatitis B: No Date of Pneumonia Vaccine: Feb 08, 2013 Seasonal Allergies Seasonal Allergies: No Current Status status: No status: No Advance Directives: No Communicates: Verbally Primary Language: Dominican Preferred Spoken Language: Dominican Implanted or Applied Medical D: None Past Medical History Surgeries: Hysterectomy, Tubal Ligation Currently Using CPAP: No Currently Using BIPAP: No High Cholesterol, Hypertension UTI-Chronic Arthritis Hypothyroidsim Colon Anxiety, Depression Blood Disorders: No Family Medical History No Pertinent Family Hx Review of Systems Constitutional: no symptoms reported EENTM: no symptoms reported Respiratory: no symptoms reported Cardiovascular: no symptoms reported Gastrointestinal: abdominal pain, nausea Physical Exam Physical Exam Vital Signs Vital Signs - First Documented 03/29/22 03/29/22 11:08 15:58 Temp 37.2 Pulse 77 Resp 22 B/P (MAP) 125/77 (93) Pulse Ox 97 O2 Delivery Room Air FiO2 32 Capillary Refill : Less Than 3 Seconds Height, Weight, BMI Height: 5'4.00" Weight: 168lbs. oz. 76.930846hr; 25.63 BMI Method:Stated General Appearance: No Apparent Distress, WD/WN Respiratory: Lungs Clear, Normal Breath Sounds, No Respiratory Distress Cardiovascular: Regular Rate, Rhythm, No Edema, No Murmur Gastrointestinal: Soft, Abnormal Bowel Sounds, Tenderness Extremity: Normal Inspection, No Pedal Edema Neurologic/Psychiatric: Alert, Normal Mood/Affect Skin: Normal Color, Warm/Dry Results Results/Procedures Labs Patient resulted labs reviewed. Imaging: Reviewed Imaging Report Assessment/Plan Assessment and Plan Assess & Plan/Chief Complaint Colon adenocarcinoma s/p right hemicolectomy Surgery primary Pain regimen Bowel regimen Ambulation Incentive spirometry HTN Hypothyroidism HLD Continue home meds as able DVT prophylaxis: Lovenox when ok with surgery Thank you for the consult. We will round as needed. Please contact the hospitalist orientation and mobility instructor with any questions or concerns. Diagnosis/Problems Diagnosis/Problems (1) Colon adenocarcinoma Status: Acute (2) S/P right hemicolectomy Status: Acute (3) HTN (hypertension) Status: Chronic (4) HLD (hyperlipidemia) Status: Chronic (5) Hypothyroidism Status: Chronic RU MELVIN MD Mar 29, 2022 18:41
[2022-03-29] MEDS ORDERED: MIRTAZAPINE 15 MG (REMERON) TAB PO SCH (21:00)
[2022-03-30] MEDS: MELATONIN 3 MG TABLET PO PRN ×2 (01:19→20:33)
[2022-03-30] MEDS: ceFAZolin INJECTION 2,000 MG in NS (IVPB) 50 ML IV SCH (01:19)
[2022-03-30] MEDS: metroNIDAZOLE 500MG/100ML IVPB 100 ML IV SCH (01:20)
[2022-03-30 03:30] VITALS: BP 137/69
[2022-03-30] MEDS: HYDROcodone/APAP 5 MG/325 MG (LORTAB) TAB PO PRN ×3 (03:36→18:16)
[2022-03-30] MEDS: LACTATED RINGERS 1,000 ML IV SCH ×3 (05:23→12:43)
[2022-03-30 05:43] LABS: HEMATOCRIT 32 % (35-52); HEMOGLOBIN 9.2 g/dL (11.5-16.0); MEAN CORPUSCULAR HEMOGLOBIN 22 pg (25-34); MEAN CORPUSCULAR HGB CONC 29 g/dL (32-36); MEAN CORPUSCULAR VOLUME 74 fL (80-99); MEAN PLATELET VOLUME 9.8 fL (9.0-12.2); PLATELET COUNT 322 10^3/uL (130-400); WHITE BLOOD COUNT 12.2 10^3/uL (4.3-11.0)
[2022-03-30 05:59] LABS: CALCIUM 8.9 MG/DL (8.5-10.1); CREATININE SERUM 0.76 MG/DL (0.60-1.30); MAGNESIUM 1.9 MG/DL (1.6-2.4); POTASSIUM 3.3 MMOL/L (3.6-5.0)
[2022-03-30] MEDS ORDERED: LEVOTHYROXINE 75 MCG (LEVOTHROID) TABLET PO SCH (06:30)
[2022-03-30 07:08] VITALS: BP 135/76
--- NOTE | 2022-03-30 07:23 | Progress Note - Surgery ---
COLLINS RICE 03/30/22 0723: Subjective Date Seen by a Provider: Mar 30, 2022 Time Seen by a Provider: 07:15 Subjective/Events-last exam 70 F s/p day 1 or lap hand assited rt hemicolectomy is resting comfortably in bed with heating pad and pillow over abdomen. Pt reports diffuse abdominal pain described as a constant ache rated 7/10 that worsens with movement and relieved by resting. pain in epigastric region upon deep inspiration. Wound covered by dressing. Has not had a BM or passing flatus since procedure. Remains NPO. Denies any urinary symptoms, fever, chills, CP, SOB, cough, n/v. Review of Systems General: No Chills, No Night Sweats HEENT: No Head Aches, No Sinus Congestion Pulmonary: No Dyspnea, No Cough Cardiovascular: No: Chest Pain, Palpitations Gastrointestinal: Abdominal Pain, Constipation; No: Nausea, Vomiting Genitourinary: No Dysuria, No Frequency Musculoskeletal: No: back pain, leg pain Neurological: No: Weakness, Numbness Objective Exam Vital Signs Date Time Temp Pulse Resp B/P (MAP) Pulse Ox O2 Delivery O2 Flow Rate FiO2 03/30/22 07:08 36.6 65 16 135/76 (95) 97 Nasal Cannula 1.50 03/30/22 03:30 36.9 69 20 137/69 (91) 98 Nasal Cannula 2.00 03/29/22 23:22 36.5 66 20 120/61 (80) 97 Nasal Cannula 2.00 03/29/22 21:00 Nasal Cannula 2.00 03/29/22 19:47 36.7 73 21 112/59 (76) 97 Nasal Cannula 2.00 03/29/22 16:07 37.1 65 21 108/57 (74) 95 Nasal Cannula 2.00 03/29/22 15:58 94 32 03/29/22 15:56 Nasal Cannula 3.00 03/29/22 15:06 97 Nasal Cannula 1.50 03/29/22 14:35 36.2 61 18 104/67 (79) 96 Nasal Cannula 2.00 03/29/22 14:35 Nasal Cannula 3.00 03/29/22 14:30 Nasal Cannula 3.00 03/29/22 14:30 37.3 20 108/57 (74) 97 Nasal Cannula 3.00 03/29/22 14:20 20 103/56 (72) 95 OxyMask 2.00 03/29/22 14:15 OxyMask 2.00 03/29/22 14:10 20 100/56 (71) 95 OxyMask 2.00 03/29/22 14:00 20 66/ 97 OxyMask 2.00 03/29/22 14:00 OxyMask 2.00 03/29/22 13:50 20 117/61 (79) 100 OxyMask 3.00 03/29/22 13:45 OxyMask 3.00 03/29/22 13:40 20 114/62 (79) 100 OxyMask 3.00 03/29/22 13:32 OxyMask 3.00 03/29/22 13:32 37.3 20 110/61 (77) 100 OxyMask 3.00 03/29/22 11:08 37.2 77 22 125/77 (93) 97 Room Air I & O 03/30/22 07:00 Intake Total 2800 ml Output Total 950 ml Balance 1850 ml Capillary Refill : Less Than 3 Seconds General Appearance: No Apparent Distress, WD/WN HEENT: PERRL/EOMI, Moist Mucous Membranes Neck: Normal Inspection, Non Tender, Supple Respiratory: Lungs Clear, Normal Breath Sounds, No Accessory Muscle Use, No Respiratory Distress Cardiovascular: Regular Rate, Rhythm, No Edema, No Murmur Peripheral Pulses: 3+ Dorsalis Pedis (R), 3+ Left Dors-Pedis (L), 3+ Radial Pulses (R), 3+ Radial Pulses (L) Gastrointestinal: no pulsatile mass, abnormal bowel sounds (hypoactive x 4), tenderness (diffuse ) Extremity: Normal Capillary Refill, Normal Inspection, Non Tender, No Calf Tenderness, No Pedal Edema Neurologic/Psychiatric: Alert, Oriented x3, Normal Mood/Affect Skin: Normal Color, Warm/Dry Lymphatic: No Adenopathy Results Lab Laboratory Tests 03/30/22 05:02: White Blood Count 12.2H, Red Blood Count 4.28, Hemoglobin 9.2L, Hematocrit 32L, Mean Corpuscular Volume 74L, Mean Corpuscular Hemoglobin 22L, Mean Corpuscular Hemoglobin Concent 29L, Red Cell Distribution Width 21.9H, Platelet Count 322, Mean Platelet Volume 9.8, Sodium Level 139, Potassium Level 3.3L, Chloride Level 103, Carbon Dioxide Level 24, Anion Gap 12, Blood Urea Nitrogen 12, Creatinine 0.76, Estimat Glomerular Filtration Rate 84, BUN/Creatinine Ratio 16, Glucose Level 130H, Calcium Level 8.9, Magnesium Level 1.9 Assessment/Plan Assessment/Plan Assessment/Plan s/p Rt hemicolectomy abdominal pain constipation leukocytosis hypokalemia continue IV abx therapy - flagyl DC [place] pain control NPO, advance to clears when passing flatus continue IVF and electrolyte supplementation dressing changes/proper wound care continue anti-emetic therapy consult PT/OT for increase mobility incentive spirometry: pt educated today on proper use ANABELLA PISANO DO 03/30/22 1016: Subjective Subjective/Events-last exam Sitting in chair. Walked already this morning. Abdomen about 7/10 pain. No nausea or vomiting. Having difficulty using IS correctly. NPO excepts sips of clears. No flatus or b m yet. Denies fever sweats chills shortness of breath or chest pain. Objective Exam General Appearance: No Apparent Distress, WD/WN HEENT: PERRL/EOMI, Normal ENT Inspection Neck: Normal Inspection, Non Tender Respiratory: Chest Non Tender, No Accessory Muscle Use, No Respiratory Distress Cardiovascular: Regular Rate, Rhythm, No JVD Gastrointestinal: soft, tenderness (incisional, no signs of infection) Extremity: Non Tender, No Calf Tenderness Neurologic/Psychiatric: Alert, Oriented x3 Skin: Normal Color, Warm/Dry Lymphatic: No Adenopathy Assessment/Plan Assessment/Plan Assessment/Plan s/p Rt extended hemicolectomy anemia secondary to colon cancer postoperative abdominal pain leukocytosis hypokalemia NPO except sips of clears, once bowel function returns advance as tolerates. anemia follow hgb hypokalemia-replace per protocol incentive spirometer, worked with her on correct use dc oreilly scd's now along with ambulation TID, lovenox to start tomorrow for dvt prophylaxis as long as hgb stable Supervisory-Addendum Brief Verification & Attestation Participated in pt care: history, MDM, physical Personally performed: exam, history, MDM, supervision of care Care discussed with: Medical Student Procedures: n/a Results interpretation: Verified all documentation Verification and Attestation of Medical Student E/M Service A medical student performed and documented this service in my presence. I reviewed and verified all information documented by the medical student and made modifications to such information, when appropriate. I personally performed the physical exam and medical decision making. Anabella Pisano, Mar 30, 2022,10:15 COLLINS RICE Mar 30, 2022 07:23 ANABELLA PISANO DO Mar 30, 2022 10:16
[2022-03-30] MEDS ORDERED: PATIENT MAY USE OWN MEDS, ALL MC SCH (08:00)
[2022-03-30] MEDS ORDERED: NS IV 500 ML 500 ML IV PRN (08:00)
[2022-03-30] MEDS: POTASSIUM CL 10MEQ/50ML IVPB 50 ML IV SCH (08:02)
[2022-03-30] MEDS: KCL 20 MEQ TAB (K-DUR) PO SCH (08:03)
[2022-03-30] MEDS: MAGNESIUM 1 GM/100 ML IVPB 100 ML IV SCH (08:03)
[2022-03-30] MEDS: PANTOPRAZOLE 40 MG (PROTONIX) TAB PO SCH (08:23)
[2022-03-30] MEDS: LOSARTAN 50 MG (COZAAR) TAB PO SCH (08:23)
[2022-03-30] MEDS: amLODIPine 5 MG (NORVASC) TAB PO SCH (08:24)
--- NOTE | 2022-03-30 09:26 | Anesthesia-General Post-Op ---
General Patient Condition Mental Status/LOC: Same as Preop Cardiovascular: Satisfactory Nausea/Vomiting: Absent Respiratory: Satisfactory Pain: Controlled Complications: Absent Post Op Complications Complications None Follow Up Care/Instructions Patient Instructions None needed. Anesthesia/Patient Condition Patient Condition Patient is doing well, no complaints, stable vital signs, no apparent adverse anesthesia problems. No complications reported per nursing. OTIS FERGUSON CRNA Mar 30, 2022 09:26
--- NOTE | 2022-03-30 10:29 | Physical Therapy Evaluation ---
PT Evaluation-General Medical Diagnosis Admission Date Mar 29, 2022 at 09:27 Medical Diagnosis: transverse colon cancer Onset Date: Mar 29, 2022 Therapy Diagnosis Therapy Diagnosis: debility Height/Weight Height (Feet): 5 Height (Inches): 4.00 Weight (Pounds): 168 Referral Physician: Bernardo Reason for Referral: Evaluation/Treatment Medical History Pertinent Medical History: HTN, Hypothroidism Current History s/p right hemicolectomy Reviewed History: Yes Social History Home: Single Level Current Living Status: Spouse Prior Prior Level of Function SCALE: Activities may be completed with or without assistive devices. 2-Yvqsarfbdz-qjvecoz completes the activity by him/herself with no assistance from a helper. 5-Set-up or Clean-up Assistance-helper sets up or cleans up; patient completes activity. [place] assists only prior to or following the activity. 4-Supervision or Touching Assistance-helper provides verbal cues and/or touching/steadying and/or contact guard assistance as patient completes activity. Assistance may be provided throughout the activity or intermittently. 3-Partial/Moderate Assistance-helper does LESS THAN HALF the effort. [place] lifts, holds or supports trunk or limbs, but provides less than half the effort. 2-Substantial/Maximal Assistance-helper does MORE THAN HALF the effort. [place] lifts or holds trunk or limbs and provides more than half the effort. 8-Wirqgdzwc-qpgwtd does ALL the effort. Patient does none of the effort to complete the activity. Or, the assistance of 2 or more helpers is required for the patient to complete the activity. If activity was not attempted, code reason: 7-Patient Refused. 9-Not Applicable-not attempted and the patient did not perform the activity b efore the current illness, exacerbation or injury. 10-Not Attempted due to Environmental Limitations-(lack of equipment, weather restraints, etc.). 88-Not Attempted due to Medical Conditions or Safety Concerns. Bed Mobility: 6 Transfers (B,C,W/C): 6 Gait: 6 Stairs: 6 Indoor Mobility (Ambulation): Independent Stairs: Independent Prior Devices Use: None PT Evaluation-Current Subjective Patient agrees to PT. Pain Numeric Pain Scale: 8 Location: Right, Medial Location Body Site: Abdomen Pain Description: Acute Objective Patient Orientation: Normal For Age Attachments: Plunkett Catheter, IV ROM/Strength ROM Lower Extremities bilateral LE WFL Strength Lower Extremities 4/5 grossly bilateral LE all planes Integumentary/Posture Bladder Incontinence: Plunkett Cath Posture WFL Neuromuscular (Tone, Coordination, Reflexes) grossly intact Sensory Vision: Functional Hearing: Functional Transfers Lying to Sitting/Side of Bed(Q: 6 Sit to Stand (QC): 6 Chair/Lrw-cl-Znole Xfer(QC): 6 Gait Mode of Locomotion: Walk Anticipated Mode of Locomotion: Walk Walk 10 feet (QC): 6 Walk 50 ft with 2 Turns(QC): 6 Walk 150 ft (QC): 6 Distance: 400' Gait Assistive Device: FWW Comments/Gait Description slow, steady Balance Sitting Static: Normal Sitting Dynamic: Normal Standing Static: Normal Standing Dynamic: Normal Assessment/Needs Patient currently at independent [facility] with gross motor skills. Patient requiring FWW for ambulation due to abdominal discomfort. Patient to ambulate in hallway with nursing and/or spouse PRN. Rehab Potential: Fair PT Plan Treatment/Plan Treatment Plan: Discontinue PT, goals met Treatment Duration: Mar 30, 2022 Frequency: 1 time per week Estimated Hrs Per Day: .25 hour per day Patient and/or Family Agrees t: Yes Time Time In: 905 Time Out: 918 DATE: Mar 30, 2022 Total Billed Treatment Time: 13 Total Billed Treatment 1 visit EVMod 13 min MATTHEW HENNING PT Mar 30, 2022 10:29
[2022-03-30 11:35] VITALS: BP 137/77
[2022-03-30 15:59] VITALS: BP 158/73
[2022-03-30 20:09] VITALS: BP 165/79
[2022-03-30] MEDS: morphine INJ 4 MG/ML 1 ML (VIAL/SYRINGE) IVP PRN (20:33)
[2022-03-30] MEDS: MIRTAZAPINE 15 MG (REMERON) TAB PO SCH (20:34)
--- NOTE | 2022-03-30 20:42 | OPERATIVE REPORT ---
DATE OF SERVICE: 03/29/2022 PREOPERATIVE DIAGNOSIS: Adenocarcinoma of colon, transverse. POSTOPERATIVE DIAGNOSIS: Adenocarcinoma of colon, transverse. PROCEDURE: Laparoscopic-assisted extended right colon resection. SURGEON: Benji Chang DO CAREER DEVELOPMENT MANAGER: Dr. Adam who assisted in retraction, dissection, and closure. ANESTHESIA: General. ESTIMATED BLOOD LOSS: Minimal. COMPLICATIONS: None. INDICATIONS: The patient is a 71-year-old female found to have adenocarcinoma of the transverse colon. She understands risks and benefits of procedure and wished to proceed. Consent was signed and in chart. DESCRIPTION OF PROCEDURE: The patient was taken to the operating suite. She was prepped and draped in sterile fashion. Timeout was performed. A midline incision was made for a hand port. A 15 blade scalpel was used to make a skin incision. Cautery was used to dissect down to the fascia, which was then scored and opened. Under direct visualization using retractors, a 12 mm retractor was placed in the subxiphoid region. The hand port was inserted and pneumoperitoneum was achieved. Under direct visualization of laparoscope, a 5 mm trocar was placed in the right lower quadrant. The tattoo was identified in the transverse colon. The right colon was then mobilized along the white line of [place]. Also extending across the transverse colon toward could be mobilized to a midline structure. This was all brought out through the hand port incision. The terminal ileum was then dissected around the MERNA linear stapler was then fired across the small bowel and then LigaSure was then used to divide the mesentery to the colon until distal to the tattooing, which another linear stapler was used to fire across the colon. The specimen was removed. The ileum and transverse colon were then brought together in a [id number]-ha-wefo fashion using a linear stapler and TA stapler. A crotch stitch was also placed. The abdomen was inspected, no other pathology noted. Hemostasis was achieved. The fascia of the midline was then closed using 1-0 looped PDS. The abdomen was then reinsufflated and no other pathology noted. The abdomen was then desufflated. The trocars were removed. The skin was then closed with te after the areas were irrigated and suctioned. The patient tolerated the procedure well without complications. She was taken to recovery room in stable condition. Job ID: [id number] DocumentID: [id number] Dictated Date: 03/30/2022 11:55:16 Assistant Manager Airside Operations Date: 03/30/2022 20:40:00 Dictated By: DO CYNTHIA PABLO
[2022-03-31] VITALS (8 sets, daily range): BP systolic 137–174; BP diastolic 77–92
[2022-03-31] MEDS: ONDANSETRON 4 MG/2 ML (SDV) Z0FRAN IVP PRN ×2 (03:16→14:49)
[2022-03-31] MEDS: morphine INJ 4 MG/ML 1 ML (VIAL/SYRINGE) IVP PRN ×2 (04:11→15:17)
[2022-03-31 05:13] LABS: HEMATOCRIT 34 % (35-52); HEMOGLOBIN 9.8 g/dL (11.5-16.0); MEAN CORPUSCULAR HEMOGLOBIN 22 pg (25-34); MEAN CORPUSCULAR HGB CONC 29 g/dL (32-36); MEAN CORPUSCULAR VOLUME 75 fL (80-99); MEAN PLATELET VOLUME 9.6 fL (9.0-12.2); PLATELET COUNT 308 10^3/uL (130-400); WHITE BLOOD COUNT 15.5 10^3/uL (4.3-11.0)
[2022-03-31 06:00] LABS: CALCIUM 9.3 MG/DL (8.5-10.1); CREATININE SERUM 0.76 MG/DL (0.60-1.30); POTASSIUM 3.7 MMOL/L (3.6-5.0)
[2022-03-31] MEDS: POTASSIUM CL 10MEQ/50ML IVPB 50 ML IV SCH (06:14)
[2022-03-31] MEDS: MAGNESIUM 1 GM/100 ML IVPB 100 ML IV SCH (06:14)
[2022-03-31] MEDS: KCL 20 MEQ TAB (K-DUR) PO SCH (06:15)
[2022-03-31] MEDS ORDERED: ONDANSETRON 4 MG/2 ML (SDV) Z0FRAN IVP ONE (06:15)
[2022-03-31] MEDS: LEVOTHYROXINE 75 MCG (LEVOTHROID) TABLET PO SCH (07:27)
[2022-03-31] MEDS: PROMETHAZINE INJ 25 MG/ML (PHENERGAN) AMP IVP PRN ×2 (08:25→18:58)
[2022-03-31] MEDS ORDERED: hydrALAZINE (APESOLINE) 20 MG/ML VIAL IV PRN (08:30)
--- NOTE | 2022-03-31 08:55 | Progress Note - Surgery ---
BERTRAM SEGOVIA 03/31/22 0855: Subjective Date Seen by a Provider: Mar 31, 2022 Time Seen by a Provider: 08:00 Subjective/Events-last exam The patient is seated in bed awake at the time of my evaluation. She reports her abdominal pain has been unchanged since her resection on 03/29. She notes she had a successful, nondiarrheic bowel movement this morning, her first since the surgery. The patient endorses new onset nausea and vomiting overnight, with 3 episodes of vomiting, and persistent nausea at this time. She denies any chest pain, shortness of breath, leg pain, or leg swelling. Review of Systems Pulmonary: No Dyspnea Cardiovascular: No: Chest Pain Gastrointestinal: Nausea, Vomiting, Abdominal Pain; No: Diarrhea, Constipation Musculoskeletal: No: leg pain Objective Exam Vital Signs Date Time Temp Pulse Resp B/P (MAP) Pulse Ox O2 Delivery O2 Flow Rate FiO2 03/31/22 07:31 36.1 83 18 158/82 (107) 92 Room Air 03/31/22 04:22 36.7 81 16 151/83 (105) 91 Room Air 03/31/22 00:02 36.2 80 16 154/89 (110) 92 Room Air 03/30/22 22:59 92 Nasal Cannula 0.00 03/30/22 21:00 Nasal Cannula 2.00 03/30/22 20:09 37.6 75 18 165/79 (107) 93 Room Air 03/30/22 15:59 37.2 77 18 158/73 (101) 95 Room Air 03/30/22 11:35 36.6 68 18 137/77 (97) 96 Room Air I & O 03/31/22 07:00 Intake Total 900 ml Output Total 900 ml Balance 0 ml Capillary Refill : Less Than 3 Seconds General Appearance: No Apparent Distress, WD/WN HEENT: PERRL/EOMI, Pharynx Normal Neck: Non Tender, Supple Respiratory: Lungs Clear, Normal Breath Sounds, No Accessory Muscle Use, No Respiratory Distress Cardiovascular: Regular Rate, Rhythm, No Murmur, Normal Peripheral Pulses Peripheral Pulses: 3+ Dorsalis Pedis (R), 3+ Left Dors-Pedis (L), 3+ Radial Pul ses (R), 3+ Radial Pulses (L) Gastrointestinal: soft, tenderness (diffuse, worse along the large midline i ncision.), other (patient has dressing along multiple surgical incisions on the abdomen. dressing appears dry and clean externally.) Extremity: No Calf Tenderness, No Pedal Edema Neurologic/Psychiatric: Alert, Oriented x3 Skin: Normal Color, Warm/Dry Results Lab Laboratory Tests 03/31/22 04:14: White Blood Count 15.5H, Red Blood Count 4.47, Hemoglobin 9.8L, Hematocrit 34L, Mean Corpuscular Volume 75L, Mean Corpuscular Hemoglobin 22L, Mean Corpuscular Hemoglobin Concent 29L, Red Cell Distribution Width 23.8H, Platelet Count 308, Mean Platelet Volume 9.6, Sodium Level 136, Potassium Level 3.7, Chloride Level 103, Carbon Dioxide Level 23, Anion Gap 10, Blood Urea Nitrogen 12, Creatinine 0.76, Estimat Glomerular Filtration Rate 84, BUN/Creatinine Ratio 16, Glucose Level 133H, Calcium Level 9.3, Magnesium Level 2.0 Microbiology 03/29/22 MRSA Screen - Final, Complete MRSA not isolated Assessment/Plan Assessment/Plan Assessment/Plan s/p Rt extended hemicolectomy POD 2 anemia secondary to colon cancer postoperative abdominal pain leukocytosis hypokalemia vomiting dressing not taken off today, plan for wound visualization by Dr. Chang on Saturday. NPO except sips of clears, once bowel function returns advance as tolerates; patient had BM on 03/31, however had onset of nausea and vomiting. Postpone advancing diet at this time, continue taking sips of clears. Continue antiemetic regimen of Zofran and Phenergan. anemia - follow hgb, improved to 9.8 on 03/31 from 9.2 on 03/30 hypokalemia-replace per protocol incentive spirometer, worked with her on correct use scd's now along with ambulation TID, lovenox to start tomorrow for dvt prophylaxis as long as hgb stable SERGO MCMANUS DO 03/31/22 1213: Subjective Time Seen by a Provider: 09:37 Subjective/Events-last exam Pt seen and examined, she was sleeping after getting Phenergan. According to nurse she did not sleep much last night, mostly because of nausea. Review of Systems Pulmonary: No Dyspnea Cardiovascular: No: Chest Pain Gastrointestinal: Nausea, Vomiting, Abdominal Pain; No: Diarrhea, Constipation Objective Exam General Appearance: No Apparent Distress, WD/WN HEENT: PERRL/EOMI Respiratory: Lungs Clear, Normal Breath Sounds, No Accessory Muscle Use, No Respiratory Distress Cardiovascular: Regular Rate, Rhythm, No Murmur Gastrointestinal: soft, tenderness (diffuse, worse along the large midline incision.), other (patient has dressing along multiple surgical incisions on the abdomen. dressing appears dry and clean externally.) Extremity: No Calf Tenderness, No Pedal Edema Assessment/Plan Assessment/Plan Assessment/Plan s/p Rt extended hemicolectomy POD 2 anemia secondary to colon cancer - monitor with labs postoperative abdominal pain leukocytosis - actually went up again today; however, that may just be phase reactant to all the vomiting last night and the surgery hypokalemia - resolved vomiting - added phenergan I had nurse take down/change dressing today. Would continue NPO except sips of clears, once bowel function returns advance as tolerates; patient had BM on 03/31. Pt had onset of nausea and vomiting, but her abdomen is not distended so will just watch and postpone advancing diet at this time. Continue antiemetic regimen of Zofran and Phenergan. Pt needs to increase IS use and ambulation. SCD's now along with lovenox to start tomorrow for dvt prophylaxis as long as hgb stable Supervisory-Addendum Brief Verification & Attestation Participated in pt care: history, MDM, physical Personally performed: exam, history, MDM, supervision of care Care discussed with: Medical Student Procedures: n/a Verification and Attestation of Medical Student E/M Service A medical student performed and documented this service. I then reviewed and verified all information documented by the medical student and made modifications to such information, when appropriate. I personally performed a physical exam, medical decision making and then discussed any differences between the notes and made revisions as necessary to create one note. Sergo Mcmanus , 03/31/22 , 12:14 BERTRAM SEGOVIA Mar 31, 2022 08:55 SERGO MCMANUS DO Mar 31, 2022 12:13
[2022-03-31] MEDS: PANTOPRAZOLE 40 MG (PROTONIX) TAB PO SCH (11:51)
[2022-03-31] MEDS: LOSARTAN 50 MG (COZAAR) TAB PO SCH (11:52)
[2022-03-31] MEDS: amLODIPine 5 MG (NORVASC) TAB PO SCH (11:53)
[2022-03-31] MEDS: ENOXAPARIN 40 MG/0.4 ML (LOVENOX) SYR SC SCH (11:53)
[2022-03-31] MEDS: MIRTAZAPINE 15 MG (REMERON) TAB PO SCH (23:52)
[2022-04-01 03:25] VITALS: BP 162/97
[2022-04-01] MEDS: PROMETHAZINE INJ 25 MG/ML (PHENERGAN) AMP IVP PRN ×2 (03:37→20:57)
[2022-04-01] MEDS: morphine INJ 4 MG/ML 1 ML (VIAL/SYRINGE) IVP PRN (03:38)
[2022-04-01] MEDS: KCL 20 MEQ TAB (K-DUR) PO SCH (06:00)
[2022-04-01] MEDS: POTASSIUM CL 10MEQ/50ML IVPB 50 ML IV SCH (06:00)
[2022-04-01] MEDS: MAGNESIUM 1 GM/100 ML IVPB 100 ML IV SCH (06:00)
[2022-04-01] MEDS: LEVOTHYROXINE 75 MCG (LEVOTHROID) TABLET PO SCH (07:53)
[2022-04-01 08:20] VITALS: BP 158/84
[2022-04-01] MEDS ORDERED: amLODIPine 5 MG (NORVASC) TAB PO SCH (09:00)
[2022-04-01] MEDS: amLODIPine 5 MG (NORVASC) TAB PO SCH (09:54)
[2022-04-01] MEDS: PANTOPRAZOLE 40 MG (PROTONIX) TAB PO SCH (09:56)
[2022-04-01] MEDS: ENOXAPARIN 40 MG/0.4 ML (LOVENOX) SYR SC SCH (09:57)
[2022-04-01] MEDS: LOSARTAN 50 MG (COZAAR) TAB PO SCH (09:58)
[2022-04-01] MEDS ORDERED: SCOPOLAMINE PATCH REMOVAL TP ONE (10:00)
[2022-04-01] MEDS: ONDANSETRON 4 MG/2 ML (SDV) Z0FRAN IVP PRN ×2 (11:56→16:36)
[2022-04-01] MEDS: HYDROcodone/APAP 5 MG/325 MG (LORTAB) TAB PO PRN ×2 (11:59→16:36)
[2022-04-01 12:10] VITALS: BP 135/86
--- NOTE | 2022-04-01 13:55 | Progress Note - Surgery ---
BERTRAM SEGOVIA 04/01/22 1355: Subjective Date Seen by a Provider: Apr 01, 2022 Time Seen by a Provider: 11:25 Subjective/Events-last exam The patient is lying supine in bed at the time of my evaluation. She reports she feels overall worse compared to yesterday due to her abdominal pain and nausea, though when asked explicitly, she says the severity of each feels about the same as yesterday. She states she has not vomited since yesterday during the day despite her persistent nausea and sips of fluid, and she denies abdominal pain other than that along her incision. The patient indicates she had a bowel movement this morning. She denies any difficulty urinating or sensation of abdominal bloating, as well as any chest pain, shortness of breath, or chills. Review of Systems General: No Chills Pulmonary: No Dyspnea Cardiovascular: No: Chest Pain Gastrointestinal: Nausea, Vomiting (yesterday), Abdominal Pain; No: Constipation Genitourinary: No Retention Objective Exam Vital Signs Date Time Temp Pulse Resp B/P (MAP) Pulse Ox O2 Delivery O2 Flow Rate FiO2 04/01/22 12:10 36.5 84 18 135/86 (102) 96 Nasal Cannula 3.00 04/01/22 08:20 37.2 76 20 158/84 (108) 96 Nasal Cannula 3.00 04/01/22 08:00 Nasal Cannula 3.00 04/01/22 03:25 36.8 88 16 162/97 (118) 97 Nasal Cannula 2.00 03/31/22 23:09 36.2 97 16 161/92 (115) 97 Nasal Cannula 3.00 03/31/22 20:00 35.8 92 16 162/80 (107) 95 Nasal Cannula 2.00 03/31/22 19:09 68 96 32 03/31/22 16:00 35.9 82 16 159/81 (107) 99 Nasal Cannula 2.00 03/31/22 15:48 Nasal Cannula 2.00 I & O 04/01/22 07:00 Intake Total 600 ml Balance 600 ml Capillary Refill : Less Than 3 Seconds General Appearance: WD/WN, Mild Distress HEENT: PERRL/EOMI Neck: Non Tender, Supple Respiratory: Lungs Clear, Normal Breath Sounds, No Accessory Muscle Use, No Respiratory Distress Cardiovascular: Regular Rate, Rhythm, No Murmur Peripheral Pulses: 3+ Dorsalis Pedis (R), 3+ Left Dors-Pedis (L), 3+ Radial Pulses (R), 3+ Radial Pulses (L) Gastrointestinal: soft; No distended, No guarding; tenderness (diffuse, worse along the large midline incision.), other (patient has dressing along multiple surgical incisions on the abdomen. dressing appears dry and clean externally.) Extremity: No Calf Tenderness, No Pedal Edema Neurologic/Psychiatric: Alert, Oriented x3 Skin: Normal Color, Warm/Dry Results Lab Microbiology 03/29/22 MRSA Screen - Final, Complete MRSA not isolated Assessment/Plan Assessment/Plan Assessment/Plan s/p Rt extended hemicolectomy POD 3 anemia secondary to colon cancer - monitor with labs postoperative abdominal pain leukocytosis - may just be phase reactant to all the vomiting last night and the surgery hypokalemia - resolved vomiting Dressing not taken down today but was changed yesterday by snow. Would continue NPO except sips of clears, once bowel function returns and nausea clears, advance as tolerates; patient had BM on 03/31 and 04/01. Patient's nausea has persisted without vomiting or abdominal distension in the past 24 hours, so will watch and postpone advancing diet at this time. Continue antiemetic regimen of Zofran and Phenergan. Pt needs to increase IS use and ambulation. SCD's now along with lovenox to start tomorrow for dvt prophylaxis as long as hgb stable. Restart lactated ringers IV. SERGO ADAM DO 04/01/22 1542: Subjective Time Seen by a Provider: 13:40 Subjective/Events-last exam Pt seen and examined, states she has abdominal pain and nausea not getting any better. She did have BM and nurse stated she walked her around. Review of Systems General: No Chills Pulmonary: No Dyspnea Cardiovascular: No: Chest Pain Gastrointestinal: Nausea, Vomiting (yesterday), Abdominal Pain; No: Constipation Objective Exam General Appearance: WD/WN, Mild Distress HEENT: PERRL/EOMI Respiratory: Lungs Clear, Normal Breath Sounds, No Accessory Muscle Use, No Respiratory Distress Cardiovascular: Regular Rate, Rhythm, No Murmur Gastrointestinal: soft; No distended, No guarding; tenderness (diffuse, worse along the large midline incision.), other (patient has dressing along multiple surgical incisions on the abdomen. dressing appears dry and clean externally.) Extremity: No Calf Tenderness, No Pedal Edema Neurologic/Psychiatric: Alert, Oriented x3 Assessment/Plan Assessment/Plan Assessment/Plan s/p Rt extended hemicolectomy POD 3 anemia secondary to colon cancer - monitor with labs postoperative abdominal pain leukocytosis - may just be phase reactant to all the vomiting last night and the surgery hypokalemia - resolved vomiting Dressing not taken down today but was changed yesterday by snow. Would continue NPO except sips of clears, once bowel function returns and nausea clears, advance as tolerates; patient had BM on 03/31 and 04/01. Patient's nausea has persisted without vomiting or abdominal distension in the past 24 hours, so will watch and postpone advancing diet at this time. Continue antiemetic regimen of Zofran and Phenergan. Pt needs to increase IS use and ambulation. SCD's now along with lovenox to start tomorrow for dvt prophylaxis as long as hgb stable. Restart lactated ringers IV. Supervisory-Addendum Brief Verification & Attestation Participated in pt care: history, MDM, physical Personally performed: exam, history, MDM, supervision of care Care discussed with: Medical Student Procedures: n/a Verification and Attestation of Medical Student E/M Service A medical student performed and documented this service. I then reviewed and verified all information documented by the medical student and made modifications to such information, when appropriate. I personally performed a physical exam, medical decision making and then discussed any differences between the notes and made revisions as necessary to create one note. Sergo Adam , 04/01/22 , 15:42 BERTRAM SEGOVIA Apr 01, 2022 13:55 SERGO ADAM DO Apr 01, 2022 15:42
[2022-04-01] MEDS: LACTATED RINGERS 1,000 ML IV SCH ×2 (14:41→22:26)
[2022-04-01 16:01] VITALS: BP 148/92
[2022-04-01 19:47] VITALS: BP 125/83
[2022-04-01] MEDS: MIRTAZAPINE 15 MG (REMERON) TAB PO SCH (20:58)
[2022-04-01 23:08] VITALS: BP 147/87
[2022-04-02] VITALS (7 sets, daily range): BP systolic 130–157; BP diastolic 76–90
[2022-04-02] MEDS: ONDANSETRON 4 MG/2 ML (SDV) Z0FRAN IVP PRN ×3 (02:33→19:59)
[2022-04-02 06:18] LABS: HEMATOCRIT 34 % (35-52); HEMOGLOBIN 10.2 g/dL (11.5-16.0); MEAN CORPUSCULAR HEMOGLOBIN 22 pg (25-34); MEAN CORPUSCULAR HGB CONC 30 g/dL (32-36); MEAN CORPUSCULAR VOLUME 75 fL (80-99); MEAN PLATELET VOLUME 9.5 fL (9.0-12.2); PLATELET COUNT 279 10^3/uL (130-400)
[2022-04-02] MEDS: LEVOTHYROXINE 75 MCG (LEVOTHROID) TABLET PO SCH (06:25)
[2022-04-02] MEDS: LACTATED RINGERS 1,000 ML IV SCH ×2 (06:25→14:40)
[2022-04-02] MEDS: PROMETHAZINE INJ 25 MG/ML (PHENERGAN) AMP IVP PRN ×2 (06:32→13:56)
[2022-04-02 06:38] LABS: CALCIUM 8.6 MG/DL (8.5-10.1); CREATININE SERUM 0.63 MG/DL (0.60-1.30); MAGNESIUM 1.9 MG/DL (1.6-2.4); POTASSIUM 3.3 MMOL/L (3.6-5.0)
--- NOTE | 2022-04-02 06:43 | Progress Note - Surgery ---
COLLINS RICE 04/02/22 0643: Subjective Date Seen by a Provider: Apr 02, 2022 Time Seen by a Provider: 06:43 Subjective/Events-last exam 71 F day 4 s/p rt hemicolectomy resting comfortably in bed during evaluation. Pt had a recurrence of nausea with emesis this morningand 2 bouts of diarrhea. d enies seeing any blood in either. Pt has a sharp stabbing abdominal pain located over the site of the incision rated 8/10. Pt reports no urinary symptoms. Claims she is still able to tolerate sips of clears. Ambulating with walker around unit with no issues. States she is using incentive spirometry as instructed. Dressing taken down, incisions showing no signs of infection and healing well. Denies fever, chills, CP, palpitations, or SOB. Review of Systems General: No Night Sweats, No Fatigue HEENT: No Head Aches, No Sore Throat Pulmonary: No Dyspnea, No Cough Cardiovascular: No: Chest Pain, Palpitations Gastrointestinal: Nausea, Abdominal Pain, Diarrhea; No: Vomiting Genitourinary: No Dysuria, No Frequency Musculoskeletal: No: leg pain, foot pain Neurological: No: Weakness, Numbness Objective Exam Vital Signs Date Time Temp Pulse Resp B/P (MAP) Pulse Ox O2 Delivery O2 Flow Rate FiO2 04/02/22 04:15 36.5 73 18 145/87 (106) 93 Nasal Cannula 1.00 04/01/22 23:08 36.0 77 18 147/87 (107) 92 Nasal Cannula 1.00 04/01/22 20:00 Nasal Cannula 3.00 04/01/22 19:47 36.6 74 22 125/83 (97) 92 Nasal Cannula 2.00 04/01/22 16:01 36.8 82 20 148/92 (110) 93 Nasal Cannula 2.00 04/01/22 12:10 36.5 84 18 135/86 (102) 96 Nasal Cannula 3.00 04/01/22 08:20 37.2 76 20 158/84 (108) 96 Nasal Cannula 3.00 04/01/22 08:00 Nasal Cannula 3.00 I & O 04/02/22 07:00 Intake Total 1090 ml Output Total 1100 ml Balance -10 ml Capillary Refill : Less Than 3 Seconds General Appearance: No Apparent Distress, WD/WN, Mild Distress HEENT: PERRL/EOMI, Moist Mucous Membranes Neck: Non Tender, Supple Respiratory: Lungs Clear, Normal Breath Sounds, No Accessory Muscle Use, No Respiratory Distress Cardiovascular: Regular Rate, Rhythm, No Murmur, Normal Peripheral Pulses Peripheral Pulses: 3+ Dorsalis Pedis (R), 3+ Left Dors-Pedis (L), 3+ Radial Pulses (R), 3+ Radial Pulses (L) Gastrointestinal: no pulsatile mass, distended (mild ); No guarding; tenderness (diffuse, worse along the large midline incision.), other (patient has dressing along multiple surgical incisions on the abdomen. dressing appears dry and clean externally.) Extremity: Normal Capillary Refill, Non Tender, No Calf Tenderness, No Pedal Edema Neurologic/Psychiatric: Alert, Oriented x3 Skin: Normal Color, Warm/Dry Results Lab Laboratory Tests 04/02/22 05:45: White Blood Count 9.0, Red Blood Count 4.57, Hemoglobin 10.2L, Hematocrit 34L, Mean Corpuscular Volume 75L, Mean Corpuscular Hemoglobin 22L, Mean Corpuscular Hemoglobin Concent 30L, Red Cell Distribution Width 25.2H, Platelet Count 279, Mean Platelet Volume 9.5, Sodium Level 136, Potassium Level 3.3L, Chloride Level 101, Carbon Dioxide Level 25, Anion Gap 10, Blood Urea Nitrogen 14, Creatinine 0.63, Estimat Glomerular Filtration Rate 95, BUN/Creatinine Ratio 22, Glucose Level 118H, Calcium Level 8.6, Magnesium Level 1.9 Microbiology 03/29/22 MRSA Screen - Final, Complete MRSA not isolated Assessment/Plan Assessment/Plan Assessment/Plan s/p Rt extended hemicolectomy POD 4 anemia secondary to colon cancer - monitor with labs, Hgb improving postoperative abdominal pain leukocytosis - resolved hypokalemia - IVF with electrolyte supplementations and continue to monitor with labs vomiting diarrhea continue NPO except sips of clears, once bowel function returns and nausea clears, advance as tolerates continue pain control Continue antiemetic regimen of Zofran and Phenergan. continue to increase IS use and PT/OT for ambulation. continue SCDs and Lovenox for dvt prophylaxis- hgb stable. Continue lactated ringers IV. continue proper wound care ANABELLA CHANG DO 04/02/22 1317: Subjective Subjective/Events-last exam Having some nausea with emesis. Passing flatus and diarrhea. Incisional abdomin al pain. Ambulating some. Using IS. Denies fever sweats chills shortness of breath or chest pain. Objective Exam General Appearance: No Apparent Distress, WD/WN HEENT: PERRL/EOMI, Normal ENT Inspection Neck: Non Tender, Supple Respiratory: Chest Non Tender, No Accessory Muscle Use, No Respiratory Distress Cardiovascular: No JVD Gastrointestinal: tenderness (incisional pain c/d/i no evidence of infectino) Extremity: Non Tender, No Calf Tenderness Neurologic/Psychiatric: Alert, Oriented x3 Skin: Normal Color, Warm/Dry Lymphatic: No Adenopathy Assessment/Plan Assessment/Plan Assessment/Plan s/p Rt extended hemicolectomy anemia secondary to colon cancer - monitor with labs, Hgb improving postoperative abdominal pain leukocytosis - resolved hypokalemia - IVF with electrolyte supplementations and continue to monitor with labs vomiting diarrhea continue NPO except sips of clears, once bowel function returns and nausea clears, advance as tolerates continue pain control Continue antiemetic regimen of Zofran and Phenergan. continue to increase IS use and PT/OT for ambulation. continue SCDs and Lovenox for dvt prophylaxis- hgb stable. Iv fluids. Supervisory-Addendum Brief Verification & Attestation Participated in pt care: history, MDM, physical Personally performed: exam, history, MDM, supervision of care Care discussed with: Medical Student Procedures: n/a Results interpretation: Verified all documentation Verification and Attestation of Medical Student E/M Service A medical student performed and documented this service in my presence. I reviewed and verified all information documented by the medical student and made modifications to such information, when appropriate. I personally performed the physical exam and medical decision making. Anabella Chang, Apr 02, 2022,13:17 COLLINS RICE Apr 02, 2022 06:43 ANABELLA CHANG DO Apr 02, 2022 13:17
[2022-04-02] MEDS: POTASSIUM CL 10MEQ/50ML IVPB 50 ML IV SCH ×3 (06:52→13:58)
[2022-04-02] MEDS: MAGNESIUM 1 GM/100 ML IVPB 100 ML IV SCH (06:52)
[2022-04-02] MEDS: KCL 20 MEQ TAB (K-DUR) PO SCH (06:53)
[2022-04-02] MEDS ORDERED: KCL 20 MEQ TAB (K-DUR) PO ONE ×2 (07:00→09:00)
--- NOTE | 2022-04-02 07:27 | Physical Therapy Progress Note ---
Therapy Progress Note Patient has been evaluated by PT last week. Patient ambulates independently with nursing and family. No skilled PT indicated. MATTHEW HENNING PT Apr 02, 2022 07:27
--- NOTE | 2022-04-02 08:59 | Occupational Therapy Eval ---
OT Evaluation-General/PLF Medical Diagnosis Admission Date Mar 29, 2022 at 09:27 Medical Diagnosis: transverse colon cancer Onset Date: Mar 29, 2022 Therapy Diagnosis Therapy Diagnosis: Requires assistance for self care, weakness, low tolerance to activity Height/Weight Height (Feet): 5 Height (Inches): 4.00 Weight (Pounds): 168 Precautions Precautions/Isolations: Standard Precautions Weight Bear Status Weight Bearing Restriction: Weight Bearing/Tolerated Referral Physician: Bernardo Referral Reason: Activity Tolerance, Self Care, Evaluation/Treatment Medical History Pertinent Medical History: HTN, Hypothroidism Current History nausea w/ bucket, Reviewed History: Yes Social History Home: Single Level Current Living Status: Spouse ADL-Prior Level of Function SCALE: Activities may be completed with or without assistive devices. 7-Fwzuqwqyql-[id number] completes the activity by him/herself with no assistance from a helper. 5-Set-up or Clean-up Assistance-helper sets up or cleans up; patient completes activity. [place] assists only prior to or following the activity. 4-Supervision or Touching Assistance-helper provides verbal cues and/or touching/steadying and/or contact guard assistance as patient completes activity. Assistance may be provided throughout the activity or intermittently. 3-Partial/Moderate Assistance-helper does LESS THAN HALF the effort. [place] lifts, holds or supports trunk or limbs, but provides less than half the effort. 2-Substantial/Maximal Assistance-helper does MORE THAN HALF the effort. [place] lifts or holds trunk or limbs and provides more than half the effort. 2-Niscemhqj-nscxgv does ALL the effort. Patient does none of the effort to complete the activity. Or, the assistance of 2 or more helpers is required for the patient to complete the activity. If activity was not attempted, code reason: 7-Patient Refused. 9-Not Applicable-not attempted and the patient did not perform the activity before the current illness, exacerbation or injury. 10-Not Attempted due to Environmental Limitations-(lack of equipment, weather restraints, etc.). 88-Not Attempted due to Medical Conditions or Safety Concerns. Self Care: Independent Functional Cognition: Independent Drive Self: Yes OT Current Status Subjective Supine in bed with clear liquids at tray table, Patient requires moderate encouragement to participate out of bed. Pain Numeric Pain Scale: 4 Location: Incisional Location Body Site: Abdomen Pain Description: Ache Mental Status/Objective Patient Orientation: Person, Place, Time, Eyes Open, Situation Attachments: [place] Catheter, IV, Oxygen Current Glasses/Contacts: Yes Upper Extremity ROM BUE WFLS Upper Extremity Strength BUE WFLS ADL-Treatment ADL-Current application of non skid socks, sweat pants, toileting and standing hand hygiene. Eating (QC): 6 (clear liquids only) Oral Hygiene (QC): 5 Lower Body Dressing (QC): 4 (Required assistance for threading feet through pant legs) On/Off Footwear (QC): 4 Toileting Hygiene (QC): 5 Education OT Patient Education: Correct positioning, Energy conservation, Exercise program, Modified ADL techniques, Progress toward Goal/Update tx plan, Purpose of tx/functional activities, Reviewed precautions, Rehab process, Safety issues, Transfer techniques, Use of adapted equipment Teaching Recipient: Patient Teaching Methods: Demonstration, Discussion Response to Teaching: Verbalize Understanding, Return Demonstration, Reinforcement Needed OT [employer] Goals [employer]st Sales Goals Eating (QC): 6 Oral Hygiene (QC): 6 Toileting Hygiene (QC): 6 Shower/Bathe Self (QC): 6 Upper Body Dressing (QC): 6 Lower Body Dressing (QC): 6 On/Off Footwear (QC): 6 1=Demonstrate adherence to instructed precautions during ADL tasks. 2=Patient will verbalize/demonstrate understanding of assistive devices/modifications for ADL. 3=Patient will improve strength/tolerance for activity to enable patient to perform ADL's. OT Education/Plan Problem List/Assessment Assessment: Decreased Activ Tolerance, Decreased Safety Aware, Impaired I ADL's, Impaired Self-Care Skills Discharge Recommendations Plan/Recommendations: Continue POC Therapy Discharge Recommendati: Home & Family Treatment Plan/Plan of Care Treatment,Training & Education: Yes Patient would benefit from OT for education, treatment and training to promote independence in ADL's, mobility, safety and/or upper extremity function for ADL's. Plan of Care: ADL Retraining, Functional Mobility, Group Exercise/Act as Ind, UE Funct Exercise/Act Treatment Duration: Apr 13, 2022 Frequency: 3 times per week (3-5 times /week) Estimated Hrs Per Day: .25 hour per day Agreement: Yes Rehab Potential: Good Patient in room in recliner w/ call light, tray table and phone in reach, c\blanket folded on lap Time Start Time: 08:14 Stop Time: 08:36 DATE: Apr 02, 2022 Total Time Billed (hr/min): 22 Billed Treatment Time 1 EVL 22m PAULA NAILS OT Apr 02, 2022 08:59
[2022-04-02] MEDS ORDERED: LEVO75TA6 PO (09:17)
[2022-04-02] MEDS ORDERED: ACET-2267 PO (09:17)
[2022-04-02] MEDS ORDERED: MULT-1136 PO (09:17)
[2022-04-02] MEDS: LOSARTAN 50 MG (COZAAR) TAB PO SCH (09:29)
[2022-04-02] MEDS: PANTOPRAZOLE 40 MG (PROTONIX) TAB PO SCH (09:29)
[2022-04-02] MEDS: ENOXAPARIN 40 MG/0.4 ML (LOVENOX) SYR SC SCH (09:32)
[2022-04-02] MEDS: amLODIPine 5 MG (NORVASC) TAB PO SCH (09:32)
[2022-04-02] MEDS: HYDROcodone/APAP 5 MG/325 MG (LORTAB) TAB PO PRN (19:59)
[2022-04-02] MEDS: MELATONIN 3 MG TABLET PO PRN (19:59)
[2022-04-02] MEDS: MIRTAZAPINE 15 MG (REMERON) TAB PO SCH (20:00)
[2022-04-03] VITALS (7 sets, daily range): BP systolic 111–162; BP diastolic 69–91
[2022-04-03] MEDS: LACTATED RINGERS 1,000 ML IV SCH ×4 (00:02→17:37)
[2022-04-03 05:51] LABS: CALCIUM 8.6 MG/DL (8.5-10.1); CREATININE SERUM 0.58 MG/DL (0.60-1.30); MAGNESIUM 1.8 MG/DL (1.6-2.4); POTASSIUM 3.2 MMOL/L (3.6-5.0)
[2022-04-03] MEDS: MAGNESIUM 1 GM/100 ML IVPB 100 ML IV SCH (05:53)
[2022-04-03] MEDS: POTASSIUM CL 10MEQ/50ML IVPB 50 ML IV SCH (05:53)
[2022-04-03] MEDS: KCL 20 MEQ TAB (K-DUR) PO SCH (05:54)
[2022-04-03] MEDS ORDERED: KCL 20 MEQ TAB (K-DUR) PO ONE ×2 (06:00→08:00)
[2022-04-03] MEDS: LEVOTHYROXINE 75 MCG (LEVOTHROID) TABLET PO SCH (06:15)
[2022-04-03] MEDS: ONDANSETRON 4 MG/2 ML (SDV) Z0FRAN IVP PRN ×2 (06:40→20:29)
--- NOTE | 2022-04-03 06:59 | Progress Note - Surgery ---
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 Pt claims she continues to have nausea this morning w/o emesis. Had 1 BM this morning that was diarrhea but denies seeing any blood. No urinary complaints. Reports improvement in abdominal pain, described as a diffuse ached rated 6/10 that is worse over incision site and exacerbated by sitting up. NPO but tolerating sips of clears. States she is using her incentive spirometer as instructed. Tolerating PT/OT. Incision site uncovered and appears to be healing well with signs of acute infection. Denies fever, chills, SOB, CP, or lightheadedness. Review of Systems General: No Chills, No Night Sweats HEENT: No Head Aches, No Sore Throat Pulmonary: No Dyspnea, No Cough Cardiovascular: No: Chest Pain, Palpitations Gastrointestinal: Nausea, Abdominal Pain, Diarrhea; No: Vomiting Genitourinary: No Dysuria, No Frequency, No Incontinence Musculoskeletal: No: leg pain, foot pain Neurological: No: Weakness, Numbness Objective Exam Vital Signs Date Time Temp Pulse Resp B/P (MAP) Pulse Ox O2 Delivery O2 Flow Rate FiO2 04/03/22 04:05 37.1 81 16 131/77 (95) 92 Nasal Cannula 1.00 04/02/22 23:45 36.8 78 16 130/76 (94) 92 Nasal Cannula 1.00 04/02/22 20:25 Nasal Cannula 1.00 04/02/22 19:53 36.8 81 16 143/84 (103) 92 Nasal Cannula 1.00 04/02/22 16:02 37.3 79 16 157/90 (112) 93 Nasal Cannula 1.00 04/02/22 11:11 36.8 72 17 145/80 (101) 96 Room Air 04/02/22 07:04 36.8 70 17 148/88 (108) 96 Nasal Cannula 1.00 04/02/22 06:59 36.8 70 17 148/88 (108) 96 Nasal Cannula 1.00 I & O 04/03/22 07:00 Intake Total 1280 ml Output Total 250 ml Balance 1030 ml Capillary Refill : Less Than 3 Seconds General Appearance: No Apparent Distress, WD/WN HEENT: PERRL/EOMI, Moist Mucous Membranes Neck: Non Tender, Supple Respiratory: Chest Non Tender, Lungs Clear, Normal Breath Sounds, No Accessory Muscle Use, No Respiratory Distress Cardiovascular: Regular Rate, Rhythm, No Edema, No Murmur, Normal Peripheral Pulses Peripheral Pulses: 3+ Dorsalis Pedis (R), 3+ Left Dors-Pedis (L), 3+ Radial Pulses (R), 3+ Radial Pulses (L) Gastrointestinal: tenderness (incisional pain c/d/i no evidence of infectino) Extremity: Normal Inspection, Non Tender, No Calf Tenderness, No Pedal Edema Neurologic/Psychiatric: Alert, Oriented x3 Skin: Normal Color, Warm/Dry Lymphatic: No Adenopathy Results Lab Laboratory Tests 04/03/22 05:10: Sodium Level 136, Potassium Level 3.2L, Chloride Level 102, Carbon Dioxide Level 24, Anion Gap 10, Blood Urea Nitrogen 11, Creatinine 0.58L, Estimat Glomerular Filtration Rate 97, BUN/Creatinine Ratio 19, Glucose Level 85, Calcium Level 8.6, Magnesium Level 1.8 Microbiology 03/29/22 MRSA Screen - Final, Complete MRSA not isolated Assessment/Plan Assessment/Plan Assessment/Plan s/p Rt extended hemicolectomy anemia secondary to colon cancer - monitor with labs, Hgb improving postoperative abdominal pain- improving hypokalemia - IVF with PO electrolyte supplementations and continue to monitor with labs nausea- improving diarrhea advance to soft food diet today continue pain control Continue antiemetic regimen of Zofran and Phenergan. continue to increase IS use and PT/OT for ambulation. Increase ambulation around unit continue SCDs and Lovenox for dvt prophylaxis- hgb stable. continue Iv fluids. ANABELLA CHANG DO 04/04/22 1023: Subjective Subjective/Events-last exam Tolerating clears. Nausea improved. Incisional pain improving. Using IS. Ambulating. denies n/v fever sweats chills shortness of breath or chest pain at this time. Objective Exam General Appearance: No Apparent Distress, WD/WN HEENT: PERRL/EOMI, Normal ENT Inspection Neck: Non Tender, Supple Respiratory: Chest Non Tender, No Accessory Muscle Use, No Respiratory Distress Cardiovascular: Regular Rate, Rhythm, No JVD Gastrointestinal: soft, tenderness (incisional pain c/d/i no evidence of infection) Extremity: Non Tender, No Calf Tenderness Neurologic/Psychiatric: Alert, Oriented x3 Skin: Normal Color, Warm/Dry Lymphatic: No Adenopathy Assessment/Plan Assessment/Plan Assessment/Plan s/p Rt extended hemicolectomy anemia secondary to colon cancer - monitor with labs, Hgb improving postoperative abdominal pain- improving hypokalemia - IVF with PO electrolyte supplementations and continue to monitor with labs nausea- improving diarrhea advance to soft food diet today continue pain control Continue antiemetic regimen of Zofran and Phenergan. continue to increase IS use and PT/OT for ambulation. Increase ambulation around unit continue SCDs and Lovenox for dvt prophylaxis- hgb stable. continue Iv fluids. Supervisory-Addendum Brief Verification & Attestation Participated in pt care: history, MDM, physical Personally performed: exam, history, MDM, supervision of care Care discussed with: Medical Student Procedures: n/a Results interpretation: Verified all documentation Verification and Attestation of Medical Student E/M Service A medical student performed and documented this service in my presence. I reviewed and verified all information documented by the medical student and made modifications to such information, when appropriate. I personally performed the physical exam and medical decision making. Anabella Chang, Apr 03, 2022,13:23 COLLINS RICE Apr 03, 2022 06:59 ANABELLA CHANG DO Apr 04, 2022 10:23
[2022-04-03] MEDS: PANTOPRAZOLE 40 MG (PROTONIX) TAB PO SCH (08:41)
[2022-04-03] MEDS: LOSARTAN 50 MG (COZAAR) TAB PO SCH (08:41)
[2022-04-03] MEDS: amLODIPine 5 MG (NORVASC) TAB PO SCH (08:56)
--- NOTE | 2022-04-03 10:03 | Occupational Ther Daily Note ---
OT Current Status-Daily Note Subjective Up in recliner w/ present Pain Numeric Pain Scale: 5-Moderate Pain Location: Incisional Location Body Site: Abdomen Pain Description: Pressure Mental Status/Objective Patient Orientation: Person, Place, Time, Situation Attachments: IV ADL-Treatment toileting, standing grooming at sink w/ FWW, SBA for IV pole and FWW safety use Therapy Code Descriptions/Definitions Functional [place] Measure: 0=Not Assessed/NA 4=Minimal Assistance 1=Total Assistance 5=Supervision or Setup 2=Maximal Assistance 6=Modified [place] 3=Moderate Assistance 7=Complete IndependenceSCALE: Activities may be completed with or without assistive devices. 3-Rrdkvrggxu-[id number] completes the activity by him/herself with no assistance from a helper. 5-Set-up or Clean-up Assistance-helper sets up or cleans up; patient completes activity. [place] assists only prior to or following the activity. 4-Supervision or Touching Assistance-helper provides verbal cues and/or touching/steadying and/or contact guard assistance as patient completes activity. Assistance may be provided throughout the activity or intermittently. 3-Partial/Moderate Assistance-helper does LESS THAN HALF the effort. [place] lifts, holds or supports trunk or limbs, but provides less than half the effort. 2-Substantial/Maximal Assistance-helper does MORE THAN HALF the effort. [place] lifts or holds trunk or limbs and provides more than half the effort. 6-Wmiiboisn-isvehq does ALL the effort. Patient does none of the effort to complete the activity. Or, the assistance of 2 or more helpers is required for the patient to complete the activity. If activity was not attempted, code reason: 7-Patient Refused. 9-Not Applicable-not attempted and the patient did not perform the activity before the current illness, exacerbation or injury. 10-Not Attempted due to Environmental Limitations-(lack of equipment, weather restraints, etc.). 88-Not Attempted due to Medical Conditions or Safety Concerns. Oral Hygiene (QC): 5 Toileting Hygiene (QC): 5 Toilet Transfer (QC): 5 Other Treatment Dynamic standing balance and multi directional function reach tasks to increase endurance Education OT Patient Education: Correct positioning, Exercise program, Instructions to caregiver, Modified ADL techniques, Progress toward Goal/Update tx plan, Purpose of tx/functional activities, Reviewed precautions, Rehab process, Safety issues, Transfer techniques, Use of adapted equipment Teaching Recipient: Patient, Family Teaching Methods: Demonstration, Discussion Response to Teaching: Verbalize Understanding, Return Demonstration, Reinforcement Needed OT Freelance Displayer Goals Fpc Goals Eating (QC): 6 Oral Hygiene (QC): 6 Toileting Hygiene (QC): 6 Shower/Bathe Self (QC): 6 Upper Body Dressing (QC): 6 Lower Body Dressing (QC): 6 On/Off Footwear (QC): 6 1=Demonstrate adherence to instructed precautions during ADL tasks. 2=Patient will verbalize/demonstrate understanding of assistive devices/modifica tions for ADL. 3=Patient will improve strength/tolerance for activity to enable patient to perform ADL's. OT Education/Plan Problem List/Assessment Assessment: Decreased Activ Tolerance, Decreased Safety Aware, Decreased UE Strength, Impaired Funct Balance, Impaired Self-Care Skills Pt reports feeling dizzy, OT notified RN patient would like BP checked Discharge Recommendations Plan/Recommendations: Continue POC Therapy Discharge Recommendati: Post Acute OT Treatment Plan/Plan of Care Treatment,Training & Education: Yes Patient would benefit from OT for education, treatment and training to promote independence in ADL's, mobility, safety and/or upper extremity function for ADL's. Plan of Care: ADL Retraining, Functional Mobility, Group Exercise/Act as Ind, UE Funct Exercise/Act Treatment Duration: Apr 13, 2022 Frequency: 3 times per week (3-5 times /week) Estimated Hrs Per Day: .25 hour per day Agreement: Yes Rehab Potential: Good Patient returned to recliner w/ pillow behind back, call light reach, tray table cleared for patient use, remains in room. RN notified of PB needs Time Start Time: 09:20 Stop Time: 09:53 DATE: Apr 03, 2022 Total Time Billed (hr/min): 23 Billed Treatment Time 2 ADLS 23 min PAULA NAILS OT Apr 03, 2022 10:02
[2022-04-03] MEDS: ENOXAPARIN 40 MG/0.4 ML (LOVENOX) SYR SC SCH (10:07)
[2022-04-03] MEDS: HYDROcodone/APAP 5 MG/325 MG (LORTAB) TAB PO PRN ×2 (11:56→23:00)
[2022-04-03] MEDS: MELATONIN 3 MG TABLET PO PRN (20:29)
[2022-04-03] MEDS: MIRTAZAPINE 15 MG (REMERON) TAB PO SCH (20:29)
[2022-04-03] MEDS: PROMETHAZINE INJ 25 MG/ML (PHENERGAN) AMP IVP PRN (23:50)
[2022-04-04 03:37] VITALS: BP 143/84
[2022-04-04] MEDS: LACTATED RINGERS 1,000 ML IV SCH (03:45)
[2022-04-04] MEDS: KCL 20 MEQ TAB (K-DUR) PO SCH (06:00)
[2022-04-04] MEDS: MAGNESIUM 1 GM/100 ML IVPB 100 ML IV SCH ×3 (06:00→09:39)
[2022-04-04] MEDS: POTASSIUM CL 10MEQ/50ML IVPB 50 ML IV SCH (06:00)
[2022-04-04 06:14] LABS: CALCIUM 8.7 MG/DL (8.5-10.1); CREATININE SERUM 0.61 MG/DL (0.60-1.30); MAGNESIUM 1.7 MG/DL (1.6-2.4); POTASSIUM 3.5 MMOL/L (3.6-5.0)
[2022-04-04] MEDS: LEVOTHYROXINE 75 MCG (LEVOTHROID) TABLET PO SCH (06:24)
[2022-04-04 07:44] VITALS: BP 119/72
[2022-04-04] MEDS ORDERED: KCL 20 MEQ TAB (K-DUR) PO ONE (08:00)
--- NOTE | 2022-04-04 09:03 | Progress Note - Surgery ---
COLLINS RICE 04/04/22 0903: Subjective Date Seen by a Provider: Apr 04, 2022 Time Seen by a Provider: 07:00 Subjective/Events-last exam Pt resting in bed comfortably with at bedside during exam. Pt claims she still has mild abdominal pain rated 4/10 located over the incision site with no radiation or associated symptoms. Pt denies having any nausea or vomiting over night. Tolerating minced moist diet well. Had frequent bouts of diarrhea overnight, but denies seeing any blood. Tolerating walks around unit w/o difficulty. Continues to use spiromenter. Denies any fever, chills, CP, SOB, lightheadedness, or urinary symptoms. Review of Systems General: No Chills, No Night Sweats HEENT: No Head Aches, No Dysphasia Pulmonary: No Dyspnea, No Cough Cardiovascular: No: Chest Pain, Palpitations Gastrointestinal: Nausea (reports minimal), Abdominal Pain (over midline incision area ), Diarrhea; No: Vomiting, Constipation Genitourinary: No Dysuria, No Incontinence Musculoskeletal: No: leg pain, foot pain Neurological: No: Weakness, Numbness Objective Exam Vital Signs Date Time Temp Pulse Resp B/P (MAP) Pulse Ox O2 Delivery O2 Flow Rate FiO2 04/04/22 07:44 37.0 67 67 119/72 (88) 14 Nasal Cannula 1.00 04/04/22 03:37 36.8 81 16 143/84 (103) 94 Room Air 04/03/22 23:28 37.3 76 16 130/77 (94) 94 Room Air 04/03/22 20:18 Room Air 04/03/22 19:58 36.9 78 16 135/71 (92) 94 Room Air 04/03/22 16:36 37.2 68 16 111/69 (83) 93 Nasal Cannula 1.00 04/03/22 12:00 36.7 73 20 119/71 (87) 91 Nasal Cannula 1.00 04/03/22 10:27 129/83 (98) I & O 04/04/22 07:00 Intake Total 1850 ml Balance 1850 ml Capillary Refill : Less Than 3 Seconds General Appearance: No Apparent Distress, WD/WN HEENT: PERRL/EOMI, Moist Mucous Membranes Neck: Non Tender, Supple Respiratory: Chest Non Tender, Lungs Clear, Normal Breath Sounds, No Accessory Muscle Use, No Respiratory Distress Cardiovascular: Regular Rate, Rhythm, No Edema, No Murmur, Normal Peripheral Pulses Peripheral Pulses: 3+ Dorsalis Pedis (R), 3+ Left Dors-Pedis (L), 3+ Radial Pulses (R), 3+ Radial Pulses (L) Gastrointestinal: soft, no pulsatile mass, tenderness (incisional pain c/d/i no evidence of infectino) Extremity: Normal Inspection, Non Tender, No Calf Tenderness, No Pedal Edema Neurologic/Psychiatric: Alert, Oriented x3 Skin: Normal Color, Warm/Dry Lymphatic: No Adenopathy Results Lab Laboratory Tests 04/04/22 05:15: Sodium Level 138, Potassium Level 3.5L, Chloride Level 104, Carbon Dioxide Level 25, Anion Gap 9, Blood Urea Nitrogen 8, Creatinine 0.61, Estimat Glomerular Filtration Rate 96, BUN/Creatinine Ratio 13, Glucose Level 85, Calcium Level 8 .7, Magnesium Level 1.7 Microbiology 03/29/22 MRSA Screen - Final, Complete MRSA not isolated Assessment/Plan Assessment/Plan Assessment/Plan s/p Rt extended hemicolectomy anemia secondary to colon cancer -Hgb stable postoperative abdominal pain- improving hypokalemia - resolved nausea- improving diarrhea DC home today with continue MM5 diet at home and advance as tolerates home on PO pain meds Home on Zofran for nausea continue to increase IS use and ambulation while at home. F/u as outpt with Dr. Chang in 2 weeks ANABELLA CHANG DO 04/04/22 1031: Subjective Subjective/Events-last exam No nausea. Tolerating diet. Having bowel function. Pain controlled. Using IS. Ambulating without difficulty. Denies fever sweats chills shortness of breath or chest pain. Objective Exam General Appearance: No Apparent Distress, WD/WN HEENT: PERRL/EOMI Neck: Non Tender, Supple Respiratory: Chest Non Tender, No Accessory Muscle Use, No Respiratory Distress Cardiovascular: Regular Rate, Rhythm, No JVD Gastrointestinal: soft, tenderness (incisional pain minimal c/d/i no evidence of infection) Extremity: Non Tender, No Calf Tenderness Neurologic/Psychiatric: Alert, Oriented x3 Skin: Normal Color, Warm/Dry Lymphatic: No Adenopathy Assessment/Plan Assessment/Plan Assessment/Plan s/p Rt extended hemicolectomy anemia secondary to colon cancer -Hgb stable postoperative abdominal pain- improving hypokalemia - resolved nausea- improving diarrhea DC home today with diet as tolerates home on PO pain meds Home on Zofran for nausea continue to increase IS use and ambulation while at home. F/u as outpt with Dr. Chang in 2 weeks Supervisory-Addendum Brief Verification & Attestation Participated in pt care: history, MDM, physical Personally performed: exam, history, MDM, supervision of care Care discussed with: Medical Student Procedures: n/a Results interpretation: Verified all documentation Verification and Attestation of Medical Student E/M Service A medical student performed and documented this service in my presence. I reviewed and verified all information documented by the medical student and made modifications to such information, when appropriate. I personally performed the physical exam and medical decision making. Anabella Chang, Apr 04, 2022,10:31 COLLINS RICE Apr 04, 2022 09:03 ANABELLA CHANG DO Apr 04, 2022 10:31
--- NOTE | 2022-04-04 09:08 | Occ Therapy Progress Note ---
Therapy Progress Note OT arrived for therapy session, patient w/ social work. OT to return when patient available PAULA NAILS OT Apr 04, 2022 09:08
[2022-04-04] MEDS: LOSARTAN 50 MG (COZAAR) TAB PO SCH (09:38)
[2022-04-04] MEDS: ENOXAPARIN 40 MG/0.4 ML (LOVENOX) SYR SC SCH (09:38)
[2022-04-04] MEDS: amLODIPine 5 MG (NORVASC) TAB PO SCH (09:38)
[2022-04-04] MEDS: PANTOPRAZOLE 40 MG (PROTONIX) TAB PO SCH (09:38)
--- NOTE | 2022-04-04 10:07 | Occ Therapy Progress Note ---
Therapy Progress Note OT returned from previous attempt for therapy session. Patient and spouse report patient to be discharged today. OT recommended therapy for clothing and DC preparation, Spouse informed OT IV to continue 1 hour. OT reports if available will return for ADLs to DC. PAULA NAILS OT Apr 04, 2022 10:07
[2022-04-04] MEDS ORDERED: ONDA4TAB11 SL (10:35)
[2022-04-04] MEDS ORDERED: ACHD5005 PO (10:35)
--- NOTE | 2022-04-04 10:37 | Discharge Inst-Simple/Standard ---
Discharge Inst-Standard Discharge Medications New, Converted or Re-Newed RX: Transmitted to Pharmacy Patient Instructions/Follow Up Plan of Care/Instructions/FU: 2 weeks Bernardo Activity as Tolerated: No Discharge Diet: Regular Diet Other Inst to Patient Follow up Appt: Make appointment for 2 week. Instructions: No lifting greater than 10 pounds. No strenuous activity. May shower in 24 hours, no tub bath or soaking. Use incentive spirometer at home as directed. No Smoking Skin/Wound Care: Keep incisions clean and dry. Symptoms to Report: Appetite Changes, Extremity Discoloration, Numbness/Tingling, Swelling Increased, Bleeding Excessive, Eyesight Changes, Pain Increased, Urine Color Change, Constipation(Persistent), Fever over 101 degree F, Pain/Pressure in chest, Urinating Difficulty, Cough Up/Vomit Blood, Heart Beat Irreg/Pounding, Pain/Pressure in jaw, Vaginal Bleeding Increase, Cramps in feet or legs, Lighth eadedness, Pain/Pressure in shoulder, Diarrhea(Persistent), Memory Changes Suddenly, Questions/Concerns, Weight gain consecutive days, Dizziness/Fainting, Nausea/Vomiting, Shortness of Breath, Weight gain over 2 pounds If questions or concerns contact your physician Or seek help at emergency department. ANABELLA PISANO DO Apr 04, 2022 10:37
[2022-04-04 10:40] VITALS: BP 119/72
[2022-04-04 11:55] VITALS: BP 119/72
== END 2022-04-04 11:55 | disposition home or self-care (01) | DRG 331 ==
LOC: 4TH 09:27 → SURG 09:28 → 4TH 14:34
PROVIDERS: ADMIT Surgery; ATTEND Surgery
PROC: 0DTF0ZZ Resection of Right Large Intestine, Open Approach (ICD-10-PCS; principal; 2022-03-29 10:50)
DX: C18.4 Malignant neoplasm of transverse colon (principal); K91.0 Vomiting following gastrointestinal surgery; I10 Essential (primary) hypertension; E78.00 Pure hypercholesterolemia, unspecified; E03.9 Hypothyroidism, unspecified; F41.9 Anxiety disorder, unspecified; F32.A Depression, unspecified; E87.6 Hypokalemia; D64.9 Anemia, unspecified; R19.7 Diarrhea, unspecified
CPT/HCPCS: 36415; 80048; 82728; 83540; 83550; 83735; 85027; 86850; 86900; 86901; 87081; 94664

== ENCOUNTER 2022-04-18 11:09 | Outpatient (RCR) | payer MEDICARE, OTHER ==
[~2022-04-18 11:09] MED LIST changes: +ACET-2267 PO; +ACHD5005 PO; +LEVO75TA6 PO; +MULT-1136 PO; +ONDA4TAB11 SL
== END 2022-05-08 | disposition home or self-care (01) ==
LOC: LAB 11:09
PROVIDERS: ATTEND Nurse Practitioner
DX: R19.7 Diarrhea, unspecified (principal)
CPT/HCPCS: 87015; 87045; 87046; 87324; 87328; 87329; 87449; 87899

== ENCOUNTER → 2022-06-07 | Outpatient (CLI) | payer MEDICARE, OTHER ==
--- NOTE | 2022-06-07 12:15 | Diagnostic Imaging Report ---
PROCEDURE: CT abdomen and pelvis without contrast. TECHNIQUE: Multiple contiguous axial images were obtained through the abdomen and pelvis without the use of intravenous contrast. Auto Exposure Controls were utilized during the CT exam to meet ALARA standards for radiation dose reduction. INDICATION: Abdominal pain. Patient has history of colon carcinoma. No prior studies are available for comparison. FINDINGS: The lung bases are clear. Liver and gallbladder are unremarkable. Pancreas and spleen are unremarkable. No adrenal mass is detected. Kidneys are unremarkable. No calculi are seen. No hydronephrosis. Aorta is nonaneurysmal. Postop changes in the region of the transverse colon are noted. Bowel loops are nonobstructed. There is moderate stool in the colon. There is no ascites. No inflammatory changes are seen. The bladder is unremarkable. Uterus appears to be surgically absent. Bony structures are nonacute. IMPRESSION: Essentially unremarkable noncontrast CT of the abdomen and pelvis. No acute abnormality is identified. Dictated by: Dictated on workstation # [id number]
== END ==
LOC: RAD 09:47
PROVIDERS: ATTEND Family Medicine
DX: R10.9 Unspecified abdominal pain (principal)
CPT/HCPCS: 74176

== ENCOUNTER → 2022-07-24 | Outpatient (CLI) | payer MEDICARE, OTHER ==
--- NOTE | 2022-07-24 13:18 | Diagnostic Imaging Report ---
INDICATION: Routine screening. COMPARISON: 07/18/2021 and 09/13/2016. TECHNIQUE: 2D and 3D bilateral screening mammography was performed with CAD. FINDINGS: Both breasts are heterogeneously dense, limiting the sensitivity of mammography. The parenchymal pattern is stable. No mass or malignant-appearing microcalcifications are seen. The axillae are unremarkable. IMPRESSION: No mammographic features suspicious for malignancy are identified. ACR BI-RADS Category 1: Negative. Result letter will be mailed to the patient. Note: At least 10% of breast cancer is not imaged by mammography. Dictated by: Dictated on workstation # [id number]
== END ==
LOC: RAD 09:12
PROVIDERS: ATTEND Family Medicine
DX: Z12.31 Encounter for screening mammogram for malignant neoplasm of breast (principal)
CPT/HCPCS: 77063; 77067

== ENCOUNTER → 2022-10-11 | Outpatient (CLI) | payer MEDICARE, OTHER ==
--- NOTE | 2022-10-11 10:20 | Diagnostic Imaging Report ---
PROCEDURE: CT head without contrast. TECHNIQUE: Multiple contiguous axial images were obtained through the brain without the use of intravenous contrast. Auto Exposure Controls were utilized during the CT exam to meet ALARA standards for radiation dose reduction. INDICATION: Dementia. Correlation is made with prior head CT from 12/27/2021. FINDINGS: The ventricles and sulci are stable in appearance. No sulcal effacement or midline shift is identified. No acute intra-axial or extra-axial hemorrhage is detected. Cisterns are patent. The visualized paranasal sinuses are clear. IMPRESSION: No acute intracranial process is detected. Dictated by: Dictated on workstation # [id number]
== END ==
LOC: RAD 10:15
PROVIDERS: ATTEND Family Medicine
DX: F03.90 Unspecified dementia, unspecified severity, without behavioral disturbance, psychotic disturbance, mood disturbance, and anxiety (principal)
CPT/HCPCS: 70450